=== PATIENT | female | born 1975 | race Two or more races ===

== ENCOUNTER 2021-12-26 09:24 | Inpatient (IN) | payer MEDICAID, OTHER ==
[~2021-12-26] VITALS: Ht 152.4 cm; Wt 84.3 kg
[2021-12-26] MEDS ORDERED: KETOROLAC TROMETH 60MG/2ML VIAL IM ONE (10:30)
[2021-12-26 10:36] LABS: Basophils # (auto) 0 10 ^3/uL (0-0.2); Basophils % (auto) 0.1 % (0.0-2.0); Eosinophils # (auto) 0 10 ^3/uL (0-0.8); Hematocrit 37.9 % (36.0-46.0); Hemoglobin 12.1 g/dL (12.2-16.2); Lymphocytes # (auto) 2.1 10 ^3/uL (0.4-5.4); Lymphocytes % (auto) 22.4 % (10.0-50.0); Mean Corpuscular Hemoglobin 23.9 pg (28.0-32.0); Mean Corpuscular Hgb Conc. 31.8 g/dL (32.0-36.0); Mean Corpuscular Volume 75.1 fL (80.0-100.0); Monocytes # (auto) 0.7 10 ^3/uL (0-1.3); Monocytes % (auto) 7.7 % (0.0-12.0); Neutrophils # (auto) 6.4 10 ^3/uL (1.6-8.6); Neutrophils % (auto) 69.8 % (37.0-80.0); Red Blood Cells 5.04 10^6/uL (4.0-5.20); Red Cell Distribution Width 17.7 % (11.8-14.3); White Blood Cell 9.2 10^3/uL (4.4-10.8)
[2021-12-26 10:53] LABS: Albumin 3.6 g/dL (3.4-5.0); Potassium 3.7 mmol/L (3.5-5.1)
[2021-12-26 10:56] LABS: BUN/Creatinine Ratio 15.4; Bilirubin, Total 0.6 mg/dL (0.2-1.0); Total Protein 8.1 g/dL (6.4-8.2)
[2021-12-26 11:20] LABS: Urine Bacteria NONE SEEN /hpf (None Seen); Urine Blood 1+ /uL (Negative); Urine Mucus FEW (None Seen); Urine Specific Gravity 1.016 (1.001-1.035); Urine WBC 598 /hpf (0 - 5); Urine WBC Clumps PRESENT /hpf (None Seen)
[2021-12-26] MEDS ORDERED: cefTRIAXone 1GM/50ML D5W 50 ML IV ONE (13:00)
[2021-12-26] MEDS ORDERED: MORPHINE SULFATE INJ 2 MG/ml SYRG IV ONE (13:00)
[2021-12-26] MEDS ORDERED: SODIUM CHLORIDE 0.9% 1,000 ML IV ONE (13:00)
[2021-12-26] MEDS ORDERED: ONDANSETRON HCL 4 MG/2 ML VIAL IV ONE (13:00)
[2021-12-26] MEDS ORDERED: ONDANSETRON HCL 4 MG/2 ML VIAL IV PRN (16:45)
[2021-12-26] MEDS ORDERED: MORPHINE SULFATE INJ 2 MG/ml SYRG IV PRN (16:45)
[2021-12-26 17:27] LABS: Magnesium 2.4 mg/dL (1.6-2.6)
[2021-12-26] MEDS: PANTOPRAZOLE 40 MG/10 ML VIAL INJ IV SCH (17:36)
[2021-12-26] MEDS: SODIUM CHLORIDE 0.9% 1,000 ML IV SCH (17:36)
[2021-12-26] MEDS ORDERED: VARD20TA PO (20:47)
[2021-12-26] MEDS ORDERED: OMEP20TA PO (20:47)
[2021-12-26 22:00] VITALS: BP 107/61
[2021-12-27] MEDS: SODIUM CHLORIDE 0.9% 1,000 ML IV SCH ×3 (01:05→18:55)
[2021-12-27 05:00] VITALS: BP 104/61
[2021-12-27] MEDS ORDERED: HYDROcodone-ACET 5/325MG TAB PO PRN (05:45)
[2021-12-27 05:54] LABS: Basophils # (auto) 0 10 ^3/uL (0-0.2); Eosinophils # (auto) 0 10 ^3/uL (0-0.8); Lymphocytes # (auto) 2.2 10 ^3/uL (0.4-5.4); Mean Corpuscular Volume 75.9 fL (80.0-100.0)
[2021-12-27 06:00] LABS: Basophils % (auto) 0.1 % (0.0-2.0); Hematocrit 31.4 % (36.0-46.0); Hemoglobin 10.2 g/dL (12.2-16.2); Mean Corpuscular Hemoglobin 24.7 pg (28.0-32.0); Mean Corpuscular Hgb Conc. 32.5 g/dL (32.0-36.0); Monocytes % (auto) 10.6 % (0.0-12.0); Neutrophils # (auto) 6.3 10 ^3/uL (1.6-8.6); Neutrophils % (auto) 66.3 % (37.0-80.0); Red Blood Cells 4.14 10^6/uL (4.0-5.20); Red Cell Distribution Width 17.4 % (11.8-14.3); White Blood Cell 9.4 10^3/uL (4.4-10.8)
[2021-12-27 06:16] LABS: Calcium 7.8 mg/dL (8.5-10.1); Potassium 3.4 mmol/L (3.5-5.1)
[2021-12-27 06:19] LABS: Albumin 2.9 g/dL (3.4-5.0); BUN/Creatinine Ratio 18.2
[2021-12-27 06:22] LABS: Bilirubin, Total 0.7 mg/dL (0.2-1.0); Total Protein 6.4 g/dL (6.4-8.2)
[2021-12-27 08:58] VITALS: BP 111/68
[2021-12-27] MEDS: PANTOPRAZOLE 40 MG/10 ML VIAL INJ IV SCH (09:04)
[2021-12-27] MEDS: cefTRIAXone 1GM/50ML D5W 50 ML IV SCH (09:04)
[2021-12-27 10:00] VITALS: BP 129/73
[2021-12-27 16:57] VITALS: BP 105/61
[2021-12-27 22:00] VITALS: BP 94/47
[2021-12-28] MEDS: SODIUM CHLORIDE 0.9% 1,000 ML IV SCH ×2 (01:54→11:29)
[2021-12-28 05:30] VITALS: BP 108/56
[2021-12-28 08:00] VITALS: BP 116/73
[2021-12-28] MEDS: cefTRIAXone 1GM/50ML D5W 50 ML IV SCH (08:39)
[2021-12-28 09:00] VITALS: BP 104/54
[2021-12-28] MEDS: PANTOPRAZOLE 40 MG/10 ML VIAL INJ IV SCH (10:01)
[2021-12-28 13:00] VITALS: BP 112/56
[2021-12-28] MEDS ORDERED: NAPR375T27 PO (16:18)
[2021-12-28 17:00] VITALS: BP 106/62
[2021-12-28 17:23] VITALS: BP 110/70
== END 2021-12-28 18:20 | disposition home or self-care (01) | DRG 463 ==
LOC: ER 09:24 → OVERFLOW 16:38 → WEST WING 20:25
PROVIDERS: ADMIT Registered Nurse; ATTEND Registered Nurse
DX: N13.6 Pyonephrosis (principal); D50.9 Iron deficiency anemia, unspecified; E03.9 Hypothyroidism, unspecified; E66.01 Morbid (severe) obesity due to excess calories; Z20.822 Contact with and (suspected) exposure to COVID-19; K29.70 Gastritis, unspecified, without bleeding; Z87.440 Personal history of urinary (tract) infections; Z87.442 Personal history of urinary calculi; Z90.12 Acquired absence of left breast and nipple; Z90.49 Acquired absence of other specified parts of digestive tract; Z88.1 Allergy status to other antibiotic agents; Z88.2 Allergy status to sulfonamides; Z88.8 Allergy status to other drugs, medicaments and biological substances; Z68.36 Body mass index [BMI] 36.0-36.9, adult
CPT/HCPCS: 36415; 74176; 76775; 80053; 80061; 81001; 83036; 83690; 83735; 84443; 85025; 87086; 96365; 96372; C9113; G0378; J0696; J1885; J2405

== ENCOUNTER 2025-01-04 15:00 | Emergency (ER) | payer MEDICAID ==
[~2025-01-04] VITALS: Ht 154.9 cm; Wt 83.5 kg
[~2025-01-04 15:00] MED LIST: NAPR-957 PO; OMEP20TA PO; VARD20TA PO
[2025-01-04 15:51] LABS: Urine Protein, UAD Negative (Negative)
[2025-01-04 15:52] VITALS: BP 141/92; PULSE 101; RESP 18; TEMP 98.1; O2SAT 97
--- NOTE | 2025-01-04 15:59 | ED.PDOC ---
General HPI Comments A 49-YEAR-OLD FEMALE WITH PMHx UTI PRESENTS WITH A CHIEF COMPLAINT OF UTI SYMPTOMS WITH ASSOCIATED NAUSEA. PATIENT MENTIONS THAT SHE IS FEELING URINARY FREQUENCY, URINARY URGENCY, DYSURIA, AND FLANK PAIN. PATIENT IS NAUSEATED BUT DENIES ANY ACTIVE VOMITING AT THIS TIME. PATIENT IS ALLERGIC TO MOST UTI MEDICATIONS AND CAN ONLY TAKE ROCEPHIN IM. PT DENIES ANY OTHER COMPLAINTS. NO OTHER SYMPTOMS REPORTED AT THIS TIME OF CARE. Chief Complaint: Urinary Time Seen by MD: 15:50 Primary Care Provider: NONE Reviewed notes: Nurses Notes, Medications, Allergies Allergies: Coded Allergies: Ciprofloxacin (Verified Allergy, Unknown, 12/26/21) Levofloxacin (Verified Allergy, Unknown, 12/26/21) Nitrofurantoin (Verified Allergy, Unknown, 12/26/21) Uncoded Allergies: SULFA (Allergy, Unknown, 12/26/21) Home Meds Active Scripts Naproxen (Naproxen) 375 Mg Tab, 1 TAB PO BID PRN for 10 Days, #20 TAB 5 Refills Prov:MINLOREN DO 12/28/21 Reported Medications Vardenafil Hydrochloride (Levitra) 20 Mg Tab, 1 TAB PO DAILYP, #6 TAB 11 Refills 12/26/21 Omeprazole (Gnp Omeprazole) 20 Mg Tab, 1 TAB PO DAILY, #90 TAB 1 Refill 12/26/21 Information Source: Patient Mode of Arrival: Ambulatory Severity: Moderate Inability to void: None Timing: Days Duration: Since onset Has not urinated for: Minutes Prehospital treatment: None Onset: Spontaneous Symptoms: Dysuria, Frequency, Urgency History of: UTI Location: Suprapubic associated signs and symptoms: Nausea, Dysuria, Frequency, Urgency Past Medical History PAST MEDICAL HISTORY: Kidney Stones, Thyroid, UTI'S Surgical History: Cholecystectomy PAINT FORMULATOR History: No Pertinent PAINT FORMULATOR History Family History Family History: Reviewed,noncontributory to illness Social History Smoker: Non-Smoker Alcohol: Denies ETOH Use Drugs: Denies Drug Use Lives In: Home Constitutional: denies: chills, diaphoresis, fatigue, fever, malaise, sweats, weakness, others EENTM: denies: blurred vision, double vision, ear bleeding, ear discharge, ear drainage, ear pain, ear ringing, eye pain, eye redness, hearing loss, mouth pain, mouth swelling, nasal discharge, nose bleeding, nose congestion, nose pain, photophobia, tearing, throat pain, throat swelling, voice changes, others Respiratory: denies: cough, hemoptysis, orthopnea, SOB at rest, shortness of breath, SOB with excertion, stridor, wheezing, others Cardiovascular: denies: chest pain, dizzy spells, diaphoresis, Dyspnea on exertion, edema, irregular heart beat, left arm pain, lightheadedness, palpitations, PND, syncope, others Gastrointestinal: reports: nausea; denies: abdomen distended, abdominal pain, blood streaked bowels, constipated, diarrhea, dysphagia, difficulty swallowing, hematemesis, melena, poor appetite, poor fluid intake, rectal bleeding, rectal pain, vomiting, others Genitourinary: reports: dysuria, frequency, pain, urgency; denies: abnormal vagina bleeding, burning, dyspareunia, flank pain, hematuria, incontinence, , vagina discharge, others Neurological: denies: dizziness, fainting, headache, left sided numbness, left sided weakness, numbness, paresthesia, pre-existing deficit, right sided numbness, right sided weakness, seizure, speech problems, tingling, tremors, weakness, others Musculoskeletal: denies: back pain, gout, joint pain, joint swelling, muscle pain, muscle stiffness, neck pain, others Integumetry: denies: bruises, change in color, change in hair/nails, dryness, laceration, lesions, lumps, rash, wounds, others Allergic/Immunocompromised: denies: Difficulty Healing, Frequent Infections, Hives, Itching, others Hematologic/Lymphatic: denies: anemia, blood clots, easy bleeding, easy bruising, swollen glands, others Endocrine: denies: excessive hunger, excessive sweating, excessive thirst, excessive urination, flushing, intolerance to cold, intolerance to heat, unexplained weight gain, unexplained weight loss, others Psychiatric: denies: anxiety, bipolar disorder, depression, hopeless, panic disorder, schizophrenia, sleepless, suicidal, others All Other Systems: Reviewed and Negative Physical Exam General Appearance: No Apparent Distress, Obese HEENT: Normal ENT Inspection, PERRL/EOMI, Pharynx Normal, TMs Normal Neck: Full Range of Motion, Non-Tender, Normal, Normal Inspection Respiratory: Chest Non-Tender, Lungs Clear, No Accessory Muscle Use, No Respiratory Distress, Normal Breath Sounds Cardiovascular: No Edema, No JVD, No Murmur, No Gallop, Normal Peripheral Pulses, Regular Rate/Rhythm Breast Exam: Deferred Gastrointestinal: No Organomegaly, No Pulsatile Mass, Normal Bowel Sounds, S oft, Suprapubic (PRESSURE. ), Tenderness Genitalia: Deferred Pelvic: Normal External Exam, Tender Uterus Rectal: Deferred Extremities: No calf tenderness, Normal capillary refill, Normal inspection, Normal range of motion, Non-tender, No pedal edema Musculoskeletal : Apperance: Normal Neurologic: Alert, assessment specialist II-XII nml as Tested, No Motor Deficits, Normal Affect, Normal Mood, No Sensory Deficits Cerebellar Function: Normal Reflexes: Normal Skin: Dry, Normal Color, Warm Peripheral Pulses: 2+ carotid (R), 2+ carotid (L) Lymphatic: No Adenopathy Was a procedure done? Was a procedure done?: No Differential Diagnosis Kidney stone (Female): Urolithiasis Urinary Problem (Female): Pyelonephritis, Urolithiasis, UTI X-Ray, Labs, Meds, VS Vital Signs Date Time Temp Pulse Resp B/P (MAP) Pulse Ox O2 Delivery O2 Flow Rate FiO2 01/04/25 15:52 101 18 97 Room Air 01/04/25 15:52 98.1 101 18 141/92 (108) 97 98.1 01/04/25 15:01 98.5 97 18 138/75 96 98.5 Lab Test 01/04/25 15:41 Range/Units Urine Color Light-yellow Yellow Urine Clarity Clear Clear Urine pH 6.0 5.0-9.0 Urine Specific [place] 1.012 1.001-1.035 Urine Protein Negative Negative Urine Ketones Negative Negative Urine Blood 2+ H Negative /uL Urine Nitrite Negative Negative Urine Bilirubin Negative Negative Urine Urobilinogen Normal Negative mg/dL Urine Leukocyte Esterase 3+ Negative /uL Urine RBC 27 0 - 4 /hpf Urine Microscopic WBC 85 H 0-5 /HPF Urine Squamous Epithelial Cells Few <5 /hpf Urine Bacteria Few H None Seen /hpf Urine Glucose Normal Normal mg/dL Current Medications Medications (Trade) Dose Ordered Sig/Nelda Route Start Time Stop Time Status Last Admin Ceftriaxone Sodium (Rocephin) 1,000 mg ONCE ONCE IM 01/04/25 16:00 01/04/25 16:01 DC 01/04/25 16:05 Ketorolac Tromethamine (Toradol Injection) 60 mg ONCE ONCE IM 01/04/25 16:00 01/04/25 16:01 DC 01/04/25 16:06 X-Ray, Labs, Meds, VS Comment EXTERNAL MEDICAL RECORDS REVIEWED: [NONE] INDEPENDENT HISTORIANS: [NONE] SOCIAL DETERMINANTS OF HEALTH: [NONE] LABS ORDERED: NONE REVIEWED AND INTERPRETED RESULTS: NONE IMAGING ORDERED: NONE TREATMENTS ORDERED: TORADOL 60MG IM, ROCEPHIN 1G IM PROCEDURES PERFORMED: NONE CRITICAL CARE TIME: NONE I HAVE DISCUSSED THE PATIENT WITH THE ATTENDING PHYSICIAN DR. BOBBY CAMACHO AND SHE AGREES WITH THE PATIENT'S PLAN OF CARE AND DISPOSITION. BASED ON HISTORY OF PRESENT ILLNESS, AND PHYSICAL EXAM, PATIENT WILL BE DISCHARGED HOME. SHARED DECISION MAKING: DISCUSSED WITH PATIENT THAT THEIR WORKUP WAS NORMAL. PATIENT INSTRUCTED TO FOLLOW UP WITH PRIMARY CARE PROVIDER IN 1-2 DAYS FOR RE- EVALUATION OF SYMPTOMS. PATIENT VERBALIZES UNDERSTANDING TO RETURN TO ED FOR NEW OR WORSENING SYMPTOMS OR IF FOLLOW UP WITH PCP CANNOT BE OBTAINED. PATIENT FEELS COMFORTABLE GOING HOME AT THIS TIME. ALL QUESTIONS ADDRESSED AT TIME OF DISCHARGE. Time of 1ST Reevaluation: 16:20 Reevaluation 1ST: Improved Patient Education/Counseling: Diagnosis, Treatment, Need For Follow Up Family Education/Counseling: Diagnosis, Treatment, Need For Follow Up Medical Screening: No EMC Exist At This Time SEPSIS Sepsis Screen Date sepsis recognized/suspect: Jan 04, 2025 Time Sepsis recognized/suspect: 1503 Recent Procedure: No On Antibiotic Therapy: No Respiratory Rate >20: No Heart Rate >90: Yes Temp<36 C (96.8 F) or >38.3 C: No SBP <90 or MAP <65 mmHG: No New Acute Mental Status Change: No Is the patient on CPAP, BIPAP,: No Vital Signs Date Time Temp Pulse Resp B/P (MAP) Pulse Ox O2 Delivery O2 Flow Rate FiO2 01/04/25 15:52 101 18 97 Room Air 01/04/25 15:52 98.1 101 18 141/92 (108) 97 98.1 01/04/25 15:01 98.5 97 18 138/75 96 98.5 Medications Medications Dose Ordered Sig/Nelda Route Start Time Stop Time Status Last Admin Dose Admin Ceftriaxone Sodium 1,000 mg ONCE ONCE IM 01/04/25 16:00 01/04/25 16:01 DC 01/04/25 16:05 Ketorolac Tromethamine 60 mg ONCE ONCE IM 01/04/25 16:00 01/04/25 16:01 DC 01/04/25 16:06 Departure 1 Departure Time of Disposition: 16:30 Impression: Primary Impression: UTI (urinary tract infection) Qualified Codes: N39.0 - Urinary tract infection, site not specified Disposition: HOME / SELF CARE / HOMELESS Condition: Stable Additional Instructions: FOLLOW-UP WITH PCP IN 1 TO 2 DAYS. TAKE MEDICATIONS PRESCRIBED. RETURN TO ED FOR ANY NEW OR WORSENING SYMPTOMS. Discharged With: Self Critical Care Note Critical Care Time?: No Stability Stability form required: No Heart Score Heart Score: Heart Score Response (Comments) Value History N/A 0 EKG N/A 0 Age N/A 0 Risk Factors N/A 0 Troponin N/A 0 Total 0 I personally scribed for VERONICA DAVIDSON ([email or web address]) on 01/04/25 at 15:59. Electronically submitted by Adrien Martinez ([email or web address]). VERONICA DAVIDSON Jan 04, 2025 15:59
[2025-01-04] MEDS: LIDOCAINE 1% HCL (LOCAL ANESTH.) INJ 20ML MDV ONE (16:01)
[2025-01-04] MEDS: cefTRIAXone SOD 1,000 MG VL IM ONE (16:05)
[2025-01-04] MEDS: KETOROLAC TROMETH 60MG/2ML VIAL IM ONE (16:06)
== END 2025-01-04 16:20 | disposition home or self-care (01) ==
LOC: ER 15:00
DX: N39.0 Urinary tract infection, site not specified (principal); E03.9 Hypothyroidism, unspecified; Z79.899 Other long term (current) drug therapy; Z87.440 Personal history of urinary (tract) infections; Z90.49 Acquired absence of other specified parts of digestive tract; Z88.1 Allergy status to other antibiotic agents; Z88.2 Allergy status to sulfonamides; Z88.8 Allergy status to other drugs, medicaments and biological substances
CPT/HCPCS: 81001; 96372; 99284; J0696; J1885; J2003

== ENCOUNTER 2025-01-05 07:12 | Inpatient (IN) | payer MEDICAID ==
[~2025-01-05] VITALS: Ht 152.4 cm; Wt 83.3 kg
[2025-01-05] MEDS ORDERED: cefTRIAXone SOD 1,000 MG VL IM ONE (08:00)
[2025-01-05] MEDS: ONDANSETRON ODT 4 MG TAB PO ONE (08:02)
--- NOTE | 2025-01-05 08:02 | ED.PDOC ---
History of Present Illness HPI Comments A 49 YEAR OLD FEMALE PRESENTS TO THE ED WITH COMPLAINT OF NAUSEA, VOMITING, AND CHILLS FOLLOWED BY A ONGOING UTI SX IN WHICH SHE WAS SEE FOR YESTERDAY AT THIS HOSPITAL. PATIENT REPORTS ALSO EXPERIENCING BACK PAIN RADIATING TO HER RIGHT SIDED FLANK AND HAS A HX OF KIDNEY STONES. PATIENT TOOK ZOFRAN AT 6:30AM TODAY. PATIENT HAS A KNOWN HISTORY OF MULTIPLE MEDICATION ALLERGIES AND IS REQUESTING ROCEPHIN 1G IM FOR SX RELIEF. PATIENT DENIES FEVER, SHORTNESS OF BREATH, CHEST PAIN, ABDOMINAL PAIN,HEADACHE, OR OTHER COMPLAINTS. NO OTHER SYMPTOMS OR MODIFYING FACTORS AT THIS TIME. PATIENT IS ALERT, ORIENTED X 4, AND HAS STEADY GAIT. Chief Complaint: Nausea/Vomiting Time Seen by MD: 07:50 Primary Care Provider: NONE Reviewed Notes: Nurses Notes, Medications, Allergies Allergies: Coded Allergies: Ciprofloxacin (Verified Allergy, Unknown, 12/26/21) Levofloxacin (Verified Allergy, Unknown, 12/26/21) Nitrofurantoin (Verified Allergy, Unknown, 12/26/21) Uncoded Allergies: SULFA (Allergy, Unknown, 12/26/21) Home Meds Active Scripts Naproxen (Naproxen) 375 Mg Tab, 1 TAB PO BID PRN for 10 Days, #20 TAB 5 Refills Prov:LOREN MIN DO 12/28/21 Reported Medications Vardenafil Hydrochloride (Levitra) 20 Mg Tab, 1 TAB PO DAILYP, #6 TAB 11 Refills 12/26/21 Omeprazole (Gnp Omeprazole) 20 Mg Tab, 1 TAB PO DAILY, #90 TAB 1 Refill 12/26/21 Information Source: Patient Mode of Arrival: Ambulatory Severity: Moderate Timing: Days, Came on: Gradually Duration: Since onset, Days Medication Refill: For: Other (UTI SYMPTOMS WITH NAUSEA AND VOMITING ) Past Medical History PAST MEDICAL HISTORY: Kidney Stones, Thyroid, UTI'S Surgical History: Cholecystectomy [employer] [place] History: No Pertinent [employer] [place] History Family History Family History: Reviewed,noncontributory to illness Social History Smoker: Non-Smoker Alcohol: Denies ETOH Use Drugs: Denies Drug Use Lives In: Home Constitutional: reports: chills, others (ANXIOUS ); denies: diaphoresis, fatigue, fever, malaise, sweats, weakness EENTM: denies: blurred vision, double vision, ear bleeding, ear discharge, ear drainage, ear pain, ear ringing, eye pain, eye redness, hearing loss, mouth pain, mouth swelling, nasal discharge, nose bleeding, nose congestion, nose p ain, photophobia, tearing, throat pain, throat swelling, voice changes, others Respiratory: denies: cough, hemoptysis, orthopnea, SOB at rest, shortness of breath, SOB with excertion, stridor, wheezing, others Cardiovascular: denies: chest pain, dizzy spells, diaphoresis, Dyspnea on exertion, edema, irregular heart beat, left arm pain, lightheadedness, palpitations, PND, syncope, others Gastrointestinal: reports: abdominal pain, nausea, vomiting; denies: abdomen distended, blood streaked bowels, constipated, diarrhea, dysphagia, difficulty swallowing, hematemesis, melena, poor appetite, poor fluid intake, rectal bleeding, rectal pain, others Genitourinary: reports: burning, flank pain, frequency, hematuria, urgency; denies: abnormal vagina bleeding, dyspareunia, dysuria, incontinence, pain, , vagina discharge, others Neurological: denies: dizziness, fainting, headache, left sided numbness, left sided weakness, numbness, paresthesia, pre-existing deficit, right sided numbness, right sided weakness, seizure, speech problems, tingling, tremors, weakness, others Musculoskeletal: reports: back pain; denies: gout, joint pain, joint swelling, muscle pain, muscle stiffness, neck pain, others Integumetry: denies: bruises, change in color, change in hair/nails, dryness, laceration, lesions, lumps, rash, wounds, others Allergic/Immunocompromised: denies: Difficulty Healing, Frequent Infections, Hives, Itching, others Hematologic/Lymphatic: denies: anemia, blood clots, easy bleeding, easy bruising, swollen glands, others Endocrine: denies: excessive hunger, excessive sweating, excessive thirst, excessive urination, flushing, intolerance to cold, intolerance to heat, unexplained weight gain, unexplained weight loss, others Psychiatric: reports: anxiety; denies: bipolar disorder, depression, hopeless, panic disorder, schizophrenia, sleepless, suicidal, others All Other Systems: Reviewed and Negative Physical Exam General Appearance: Mild Distress, Normal, Other (ANXIOUS ) HEENT: Normal ENT Inspection, PERRL/EOMI, Pharynx Normal, TMs Normal Neck: Full Range of Motion, Non-Tender, Normal, Normal Inspection Respiratory: Chest Non-Tender, Lungs Clear, No Accessory Muscle Use, No Respiratory Distress, Normal Breath Sounds Cardiovascular: No Edema, No JVD, No Murmur, No Gallop, Normal Peripheral Pulses, Regular Rate/Rhythm Breast Exam: Deferred Gastrointestinal: LLQ, No Organomegaly, No Pulsatile Mass, Normal Bowel Sounds, RLQ, Soft, Suprapubic, Tenderness (LOWER ABD, NO GUARDING AND REBOUND TENDERNESS. +CVA TENDERNESS ON RIGHT FLANK. ) Genitalia: Deferred Pelvic: Normal External Exam Rectal: Deferred Extremities: No calf tenderness, Normal capillary refill, Normal inspection, Normal range of motion, Non-tender, No pedal edema Musculoskeletal : Location: Bilateral Extremity Location: Back Apperance: Tenderness (LOWER BACK, NO BONY TENDERNESS, SWELLING AND DEFORMITY, +CVA TENDERNESS. ) Neurologic: Alert, human resources services specialist II-XII nml as Tested, No Motor Deficits, Normal Affect, Normal Mood, No Sensory Deficits Cerebellar Function: Normal Reflexes: Normal Skin: Dry, Normal Color, Warm Peripheral Pulses: 2+ carotid (R), 2+ carotid (L), 2+ dorsalis pedis (R), 2+ dorsalis pedis (L) Lymphatic: No Adenopathy Was a procedure done? Was a procedure done?: No Differential Dx Considerations may include: KIDNEY STONES, UTI, URETHRITIS, OVERACTIVE BLADDER, BLADDER STONES, URETHRAL STRICTURE X-Ray, Labs, Meds, VS Vital Signs Date Time Temp Pulse Resp B/P (MAP) Pulse Ox O2 Delivery O2 Flow Rate FiO2 01/05/25 15:29 97.8 71 16 109/64 (79) 97 97.8 01/05/25 11:53 98.5 112 18 142/75 (97) 97 98.5 01/05/25 11:53 112 18 97 Room Air 01/05/25 09:52 98.6 109 16 109/70 (83) 95 98.6 01/05/25 09:52 109 16 95 Room Air 01/05/25 07:18 99.6 130 16 146/87 97 99.6 Lab Test 01/05/25 08:20 01/05/25 07:52 Range/Units White Blood Count 18.9 H 4.4-10.8 10^3/uL Red Blood Count 5.02 4.0-5.20 10^6/uL Hemoglobin 13.0 12.2-16.2 g/dL Hematocrit 39.3 36.0-46.0 % Mean Corpuscular Volume 78.4 L 80.0-100.0 fL Mean Corpuscular Hemoglobin 26.0 L 28.0-32.0 pg Mean Corpuscular Hemoglobin Concent 33.2 32.0-36.0 g/dL Red Cell Distribution Width 16.8 H 11.8-14.3 % Platelet Count 340 140-450 10^3/uL Mean Platelet Volume 8.7 6.9-10.8 fL Neutrophils (%) (Auto) 90.0 H 37.0-80.0 % Lymphocytes (%) (Auto) 3.7 L 10.0-50.0 % Monocytes (%) (Auto) 6.1 0.0-12.0 % Eosinophils (%) (Auto) 0.0 0.0-7.0 % Basophils (%) (Auto) 0.2 0.0-2.0 % Neutrophils # (Auto) 17.0 H 1.6-8.6 10 ^3/uL Lymphocytes # (Auto) 0.7 0.4-5.4 10 ^3/uL Monocytes # (Auto) 1.1 0-1.3 10 ^3/uL Eosinophils # (Auto) 0 0-0.8 10 ^3/uL Basophils # (Auto) 0 0-0.2 10 ^3/uL Nucleated Red Blood Cells 0.0 % Sodium Level 135 L 136-145 mmol/L Potassium Level 3.7 3.5-5.1 mmol/L Chloride Level 102 98-107 mmol/L Carbon Dioxide Level 21 20-31 mmol/L Anion Gap 12 5-15 Blood Urea Nitrogen 16 9-23 mg/dL Creatinine 0.94 0.550-1.02 mg/dL Glomerular Filtration Rate Calc 73 >90 mL/min BUN/Creatinine Ratio 17.0 10.0-20.0 Serum Glucose 168 H 74-106 mg/dL Calcium Level 9.2 8.7-10.4 mg/dL Urine Color Light-orange Yellow Urine Clarity Turbid H Clear Urine pH 5.5 5.0-9.0 Urine Specific [place] 1.027 1.001-1.035 Urine Protein 1+ H Negative Urine Ketones 1+ H Negative Urine Blood 2+ H Negative /uL Urine Nitrite Negative Negative Urine Bilirubin Negative Negative Urine Urobilinogen Normal Negative mg/dL Urine Leukocyte Esterase 3+ Negative /uL Urine RBC 88 0 - 4 /hpf Urine WBC Clumps Present None Seen /hpf Urine Microscopic WBC 486 H 0-5 /HPF Urine Squamous Epithelial Cells Few <5 /hpf Urine Bacteria Few H None Seen /hpf Urine Mucus Few None Seen Urine Glucose Trace Normal mg/dL Current Medications Medications (Trade) Dose Ordered Sig/Nelda Route Start Time Stop Time Status Last Admin Ondansetron HCl (Zofran Po) 4 mg ONCE ONCE PO 01/05/25 08:00 01/05/25 08:01 DC 01/05/25 08:02 Sodium Chloride 1,000 ml @ 1,000 mls/hr Q1H ONCE IV 01/05/25 09:30 01/05/25 10:29 DC 01/05/25 11:55 Ceftriaxone Sodium 50 ml @ 100 mls/hr ONCE ONCE IV 01/05/25 09:30 01/05/25 09:59 DC 01/05/25 11:54 Ketorolac Tromethamine (Toradol Injection) 30 mg ONCE ONCE IV 01/05/25 09:30 01/05/25 09:31 DC 01/05/25 11:54 Pantoprazole Sodium (Protonix) 40 mg ONCE ONCE IV 01/05/25 12:15 01/05/25 12:16 DC 01/05/25 12:13 Ondansetron HCl (Zofran) 4 mg ONCE ONCE IV 01/05/25 12:15 01/05/25 12:16 DC 01/05/25 12:13 PATIENT: SHIRLEY RICHARDSACCT: [id number]: [id number] : 1975 LOC: ER ROOM / BED: / AGE / SEX: 49 / F ADM STATUS: REG ER SERVICE [id number] ORDERING PHYSICIAN: VERONICA DAVIDSON PROCEDURE(s): ABPL - CT AB PEL WO CON-NO ORAL OR IV REASON: RIGHT SIDE LOWER ABD PAIN TO RIGHT LOWER BACK, HX OF KIDNEY ORDER NUMBER(s): [id number], ACCESSION NUMBER(s): [id number] Exam: CT CT AB PEL WO CON-NO ORAL OR IV History: RIGHT SIDE LOWER ABD PAIN TO RIGHT LOWER BACK, HX OF KIDNEY Comparison Study: Report from a prior CT scan of the abdomen and pelvis dated 03/18/2024. Technique: Multidetector spiral CT of the abdomen and pelvis was performed from lung bases to pubic symphysis. Imaging was performed without intravenous contrast. Coronal and sagittal multiplanar reformats were obtained from the axial data set by the technologist. Radiation Dose : 1. Abdomen/Pelvis: CTDIvol 19.92 mGy, DLP 1039.9 mGy*cm. Findings: Evaluation of vasculature and solid organs is limited due to lack of intravenous contrast use. Lung Bases: Lung bases are clear. Visualized portions of the heart and pericardium are unremarkable. Liver: The liver is enlarged. Limited evaluation for lesions without intravenous contrast. Hypoattenuating liver parenchyma consistent with hepatic steatosis. Gallbladder and Biliary Tree: The gallbladder is surgically absent. No intrahepatic or extrahepatic biliary ductal dilatation. Spleen: The spleen is enlarged measuring 13.5 cm in length. Pancreas: The pancreas is grossly unremarkable. Adrenal Glands: Unremarkable Kidneys: Multiple Nonobstructive right intrarenal calculi measuring up to 1.3 cm in the lower pole of the right kidney. Nonobstructive left intrarenal calculi measuring up to 3 mm. GI tract: The stomach is grossly normal in appearance. No evidence of small bowel wall thickening or abnormal dilatation to suggest bowel obstruction. The colon is unremarkable. The appendix is visualized and is normal. Peritoneum/mesentery/retroperitoneum. No evidence of free intraperitoneal air. No ascites. No evidence of suspicious lymphadenopathy. Abdominal Wall: Unremarkable. Vasculature: The visualized abdominal aorta is normal in size and caliber. Evaluation of abdominal and pelvic vessels is limited due to lack of intravenous contrast. Urinary Bladder: Grossly unremarkable for degree of distention. Pelvic Organs: Unremarkable Musculoskeletal: No aggressive focal bony lesions, acute fractures or dislocation. IMPRESSION: 1. No acute abdominal or pelvic findings. 2. Nonobstructive Bilateral intrarenal calculi, right greater than left. 3. Hepatomegaly and hepatic steatosis. 4. Splenomegaly. ATED BY: DINA MISTRY MD DICTATED DATE/TIME: 01/05/25 0847 SIGNED BY: DINA MISTRY MD SIGNED DATE/TIME: 01/05/25 2996 CC: X-Ray, Labs, Meds, VS Comment EXTERNAL MEDICAL RECORDS REVIEWED: [NONE] INDEPENDENT HISTORIANS: [NONE] SOCIAL DETERMINANTS OF HEALTH: [NONE] LABS ORDERED: BMP, CBC, URINE ANALYSIS, URINE BACTERIAL CULTURE REVIEWED AND INTERPRETED RESULTS: UTI WITH ELEVATED WBC OF 18.9. GLUCOSE MEASURED 168 IMAGING ORDERED: CTAP W/O CON REVIEWED AND INTERPRETED RESULTS: IMPRESSION: 1. No acute abdominal or pelvic findings. 2. Nonobstructive Bilateral intrarenal calculi, right greater than left. 3. Hepatomegaly and hepatic steatosis. 4. Splenomegaly. TREATMENTS ORDERED: ZOFRAN 4M PO, ROCEPHIN 1GM IVPB, 0.9 NS 1L, TORADOL 30MG IV. FLOMAX 0.4MG 2 CAP ORDERED BUT DISCONTINUED PT REPORTS PREVIOUS ALLERGIC REACTION. (WAS NOT GIVE) PROCEDURES PERFORMED: NONE CRITICAL CARE TIME: NONE I HAVE DISCUSSED THE PATIENT WITH THE ATTENDING PHYSICIAN DR. PRICE AND HE AGREES WITH THE PATIENT'S PLAN OF CARE AND DISPOSITION. MDM A 49 year old female presented to the ED c/o . Upon my physical examination, My differential diagnosis includes UTI, acute pyelonephritis, Nonobstructive Bilateral intrarenal calculi, right greater than left. Labs were ordered for the patient which showed elevated WBC I have determined the patient will be admitted based off of my clincal exam findings and tests given ongoing urinary symptoms and flank pain for further diagnostic testing. Time of 1ST Reevaluation: 09:00 Reevaluation 1ST: Unchanged Patient Education/Counseling: Diagnosis, Treatment Family Education/Counseling: Diagnosis, Treatment SEPSIS Sepsis Screen Date sepsis recognized/suspect: Jan 05, 2025 Time Sepsis recognized/suspect: 721 Recent Procedure: No On Antibiotic Therapy: Yes Respiratory Rate >20: No Heart Rate >90: Yes Temp<36 C (96.8 F) or >38.3 C: No SBP <90 or MAP <65 mmHG: No New Acute Mental Status Change: No Is the patient on CPAP, BIPAP,: No Physician Orders Urine Bacterial Culture (01/05/25 07:54) Ct Ab Pel Wo Con-No Oral Or Iv (01/05/25 07:54) Heplock Iv (01/05/25 ) Vital Signs Date Time Temp Pulse Resp B/P (MAP) Pulse Ox O2 Delivery O2 Flow Rate FiO2 01/05/25 15:29 97.8 71 16 109/64 (79) 97 97.8 01/05/25 11:53 98.5 112 18 142/75 (97) 97 98.5 01/05/25 11:53 112 18 97 Room Air 01/05/25 09:52 98.6 109 16 109/70 (83) 95 98.6 01/05/25 09:52 109 16 95 Room Air 01/05/25 07:18 99.6 130 16 146/87 97 99.6 Laboratory Tests Test 01/05/25 08:20 White Blood Count 18.9 10^3/uL (4.4-10.8) H Medications Medications Dose Ordered Sig/Nelda Route Start Time Stop Time Status Last Admin Dose Admin Ceftriaxone Sodium 50 ml @ 100 mls/hr ONCE ONCE IV 01/05/25 09:30 01/05/25 09:59 DC 01/05/25 11:54 Ketorolac Tromethamine 30 mg ONCE ONCE IV 01/05/25 09:30 01/05/25 09:31 DC 01/05/25 11:54 Ondansetron HCl 4 mg ONCE ONCE IV 01/05/25 12:15 01/05/25 12:16 DC 01/05/25 12:13 Ondansetron HCl 4 mg ONCE ONCE PO 01/05/25 08:00 01/05/25 08:01 DC 01/05/25 08:02 Pantoprazole Sodium 40 mg ONCE ONCE IV 01/05/25 12:15 01/05/25 12:16 DC 01/05/25 12:13 Sodium Chloride 1,000 ml @ 1,000 mls/hr Q1H ONCE IV 01/05/25 09:30 01/05/25 10:29 DC 01/05/25 11:55 Departure 1 Departure Time of Disposition: 09:28 Impression: Primary Impression: Acute pyelonephritis Additional Impression: Calculus of both kidneys Disposition: ADMITTED INPATIENT Admit to: Med Surg Condition: Serious Critical Care Note Critical Care Time?: No Stability Stability form required: Yes Unstable for transfer: Requires medication, ED Physician Assesment, Possible rapid decline I personally scribed for VERONICA DAVIDSON ([email or web address]) on 01/05/25 at 08:02. Electronically submitted by Sarina Barrera ([facility]). I personally scribed for VERONICA DAVIDSON ([email or web address]) on 01/05/25 at 08:07. Electronically submitted by Sarina Barrera ([facility]). I personally scribed for VERONICA DAVIDSON ([email or web address]) on 01/05/25 at 09:29. Electronically submitted by Sarina Barrera ([facility]). I personally scribed for VERONICA DAVIDSON ([email or web address]) on 01/05/25 at 11:57. Electronically submitted by Sarina Barrera ([facility]). VERONICA DAVIDSON Jan 05, 2025 08:02
[2025-01-05 08:47] LABS: Nucleated Red Blood Cells % 0.0 %
[2025-01-05 08:48] LABS: Chloride 102 mmol/L (98-107); Potassium 3.7 mmol/L (3.5-5.1)
[2025-01-05 08:49] LABS: Anion Gap 12 (5-15); Calcium 9.2 mg/dL (8.7-10.4); Carbon Dioxide 21 mmol/L (20-31); Hematocrit 39.3 % (36.0-46.0); Hemoglobin 13.0 g/dL (12.2-16.2); Mean Corpuscular Hemoglobin 26.0 pg (28.0-32.0); Mean Corpuscular Volume 78.4 fL (80.0-100.0)
--- NOTE | 2025-01-05 08:50 | DVH ---
Exam: CT CT AB PEL WO CON-NO ORAL OR IV History: RIGHT SIDE LOWER ABD PAIN TO RIGHT LOWER BACK, HX OF KIDNEY Comparison Study: Report from a prior CT scan of the abdomen and pelvis dated 03/18/2024. Technique: Multidetector spiral CT of the abdomen and pelvis was performed from lung bases to pubic s ymphysis. Imaging was performed without intravenous contrast. Coronal and sagittal multiplanar reform ats were obtained from the axial data set by the technologist. Radiation Dose : 1. Abdomen/Pelvis: CTDIvol 19.92 mGy, DLP 1039.9 mGy*cm. Findings: Evaluation of vasculature and solid organs is limited due to lack of intravenous contrast use. Lung Bases: Lung bases are clear. Visualized portions of the heart and pericardium are unremarkable. Liver: The liver is enlarged. Limited evaluation for lesions without intravenous contrast. Hypoatten uating liver parenchyma consistent with hepatic steatosis. Gallbladder and Biliary Tree: The gallbladder is surgically absent. No intrahepatic or extrahepatic b iliary ductal dilatation. Spleen: The spleen is enlarged measuring 13.5 cm in length. Pancreas: The pancreas is grossly unremarkable. Adrenal Glands: Unremarkable Kidneys: Multiple Nonobstructive right intrarenal calculi measuring up to 1.3 cm in the lower pole of the right kidney. Nonobstructive left intrarenal calculi measuring up to 3 mm. GI tract: The stomach is grossly normal in appearance. No evidence of small bowel wall thickening or abnormal dilatation to suggest bowel obstruction. The colon is unremarkable. The appendix is visualiz ed and is normal. Peritoneum/mesentery/retroperitoneum. No evidence of free intraperitoneal air. No ascites. No evidenc e of suspicious lymphadenopathy. Abdominal Wall: Unremarkable. Vasculature: The visualized abdominal aorta is normal in size and caliber. Evaluation of abdominal a nd pelvic vessels is limited due to lack of intravenous contrast. Urinary Bladder: Grossly unremarkable for degree of distention. Pelvic Organs: Unremarkable Musculoskeletal: No aggressive focal bony lesions, acute fractures or dislocation. IMPRESSION: 1. No acute abdominal or pelvic findings. 2. Nonobstructive Bilateral intrarenal calculi, right greater than left. 3. Hepatomegaly and hepatic steatosis. 4. Splenomegaly.
[2025-01-05 08:54] LABS: BUN/Creatinine Ratio 17.0 (10.0-20.0); Blood Urea Nitrogen 16 mg/dL (9-23)
[2025-01-05 09:00] LABS: Glucose 168 mg/dL (74-106); Sodium 135 mmol/L (136-145)
[2025-01-05 09:18] LABS: Urine Protein, UAD 1+ (Negative); Urine WBC Clumps PRESENT /hpf (None Seen)
[2025-01-05] MEDS ORDERED: TAMSULOSIN HYDROCHLORIDE 0.4 MG CAP PO ONE (09:30)
[2025-01-05] MEDS: KETOROLAC TROMETH 30 MG/ML 1ML VIAL IV ONE (11:54)
[2025-01-05] MEDS: cefTRIAXone 1GM/50ML D5W 50 ML IV ONE (11:54)
[2025-01-05] MEDS: SODIUM CHLORIDE 0.9% 1,000 ML IV ONE ×2 (11:55→18:15)
[2025-01-05] MEDS: ONDANSETRON HCL 4 MG/2 ML VIAL IV ONE (12:13)
[2025-01-05] MEDS: PANTOPRAZOLE 40 MG/10 ML VIAL INJ IV ONE (12:13)
[2025-01-05] MEDS ORDERED: NITROGLYCERIN 0.4 MG SL TAB SL PRN (16:30)
[2025-01-05] MEDS ORDERED: ACETAMINOPHEN 325 MG TAB PO PRN (16:30)
[2025-01-05] MEDS: SODIUM CHLORIDE 0.9% 1,000 ML IV SCH (16:30)
[2025-01-05 17:03] LABS: Triglycerides 90.0 mg/dL (< 150)
[2025-01-05 17:05] LABS: Cholesterol 182.0 mg/dL (< 200)
--- NOTE | 2025-01-05 17:23 | DVHHP2 ---
MORENO FORD RESIDENT 01/05/25 1723: History of Present Illness History of Present Illness This is a 49-year-old female presents to the emergency department with complaints of nausea, vomiting, and chills, which began prior to ongoing urinary tract infection (UTI) symptoms. She was evaluated at this hospital yesterday for similar complaints. Today, she reports persistent back pain radiating to the right flank, 9/10 intensity, sharp in nature, intermittent, no aggravating or relieving factor. Patient also stated symptoms associated with nausea and vomiting few episodes but no blood mixed with vomitus. Patient febrile at home temperature 103 F with chills, feeling generalized weakness and decreased appetite. She has a known history of kidney stones. Patient also stated dysuria but no hematuria. Patient given history of stent placement on 08/23/2024 and complicated with stent infection which removed on September 02, 2024. The patient took Zofran at 6:30 AM for symptom relief. She denies cough, shortness of breath, chest pain, headache, or other complaints. No additional symptoms or modifying factors are reported at this time. The patient is alert, oriented to person, place, time, and situation, and ambulates with a steady gait. PAST MEDICAL HISTORY: Kidney Stones, hypothyroidism, UTI'S Surgical History: Cholecystectomy Family History: noncontributory Smoker: Non-Smoker Alcohol: Denies ETOH Use Drugs: Denies Drug Use Lives In: Home Allergy: Cipro, Levaquin, nitrofurantoin, sulfa PCP: Not selected Review of Systems Constitutional: Yes: Fever, Chills, Malaise; No: Sweats, Weakness, Other Eyes: No: Pain, Vision change, Conjunctivae inflammation, Eyelid inflammation, Other, Redness ENT: No: Ear pain, Ear discharge, Nose pain, Nose discharge, Nose congestion, Mouth pain, Mouth swelling, Throat pain, Throat swelling, Other Respiratory: No: Cough, Dry, Shortness of breath, SOB with excertion, Wheezing, Hemoptysis, Pleuritic Pain, Sputum, Wheezing, Other Cardiovascular: No: Chest Pain, Palpitations, Orthopnea, Paroxysmal Noc. Dyspnea, Edema, Lt Headedness, Other Gastrointestinal: Nausea, Vomiting, Abdominal Pain, Other (Appetite decreased) Genitourinary: Dysuria, Frequency; No Incontinence, No Hematuria, No Retention, No Other Musculoskeletal: No: other, neck pain, shoulder pain, arm pain, back pain, hand pain, leg pain, foot pain Skin: Other (Surgical scar tori back of right lower costal area); No: Rash, Lesions, Jaundice, Bruising Neurological: No: Weakness, Numbness, Incoordination, Change in speech, Confusion, Seizures, Other Allergies: Coded Allergies: Ciprofloxacin (Verified Allergy, Unknown, 12/26/21) Levofloxacin (Verified Allergy, Unknown, 12/26/21) Nitrofurantoin (Verified Allergy, Unknown, 12/26/21) Uncoded Allergies: SULFA (Allergy, Unknown, 12/26/21) Medications Current Medications Medications Dose Ordered Sig/Nelda Route Start Time Stop Time Status Last Admin Dose Admin Sodium Chloride 1,000 ml @ 120 mls/hr Q8H20M IV 01/05/25 16:30 Ondansetron HCl 4 mg Q4HP PRN IV 01/05/25 16:30 Enoxaparin Sodium 30 mg DAILY SC 01/06/25 10:00 Ketorolac Tromethamine 30 mg Q6HPRN PRN IV 01/05/25 16:30 01/10/25 16:29 Ceftriaxone Sodium 50 ml @ 100 mls/hr DAILY@09 IV 01/06/25 09:00 Acetaminophen 650 mg Q6HR PO 01/05/25 16:45 Levothyroxine Sodium 25 mcg QAM@0600 PO 01/06/25 06:00 Famotidine 20 mg DAILY PO 01/06/25 10:00 Exam Vital Signs Vital Signs Date Time Temp Pulse Resp B/P (MAP) Pulse Ox O2 Delivery O2 Flow Rate FiO2 01/05/25 15:29 97.8 71 16 109/64 (79) 97 97.8 01/05/25 11:53 Room Air General Appearance: Alert, Oriented X3, Cooperative, moderate distress HEENT: Atraumatic, PERRLA Respiratory: Clear to auscultation, Normal air movement Cardiovascular: Regular rate, Normal S1, Normal S2, No murmurs Abdominal: Normal bowel sounds, Soft, No tenderness, Other (Costovertebral angle tender on deep palpation bilaterally) Extremities: No clubbing, No cyanosis, No edema, Normal pulses Skin: No rashes, No breakdown Neuro: Normal gait, Normal speech Labs/Xrays Labs Test 8/8/25 08:20 01/05/25 07:52 01/05/25 07:32 Range/Units White Blood Count 18.9 H 4.4-10.8 10^3/uL Red Blood Count 5.02 4.0-5.20 10^6/uL Hemoglobin 13.0 12.2-16.2 g/dL Hematocrit 39.3 36.0-46.0 % Mean Corpuscular Volume 78.4 L 80.0-100.0 fL Mean Corpuscular Hemoglobin 26.0 L 28.0-32.0 pg Mean Corpuscular Hemoglobin Concent 33.2 32.0-36.0 g/dL Red Cell Distribution Width 16.8 H 11.8-14.3 % Platelet Count 340 140-450 10^3/uL Mean Platelet Volume 8.7 6.9-10.8 fL Neutrophils (%) (Auto) 90.0 H 37.0-80.0 % Lymphocytes (%) (Auto) 3.7 L 10.0-50.0 % Monocytes (%) (Auto) 6.1 0.0-12.0 % Eosinophils (%) (Auto) 0.0 0.0-7.0 % Basophils (%) (Auto) 0.2 0.0-2.0 % Neutrophils # (Auto) 17.0 H 1.6-8.6 10 ^3/uL Lymphocytes # (Auto) 0.7 0.4-5.4 10 ^3/uL Monocytes # (Auto) 1.1 0-1.3 10 ^3/uL Eosinophils # (Auto) 0 0-0.8 10 ^3/uL Basophils # (Auto) 0 0-0.2 10 ^3/uL Nucleated Red Blood Cells 0.0 % Sodium Level 135 L 136-145 mmol/L Potassium Level 3.7 3.5-5.1 mmol/L Chloride Level 102 98-107 mmol/L Carbon Dioxide Level 21 20-31 mmol/L Anion Gap 12 5-15 Blood Urea Nitrogen 16 9-23 mg/dL Creatinine 0.94 0.550-1.02 mg/dL Glomerular Filtration Rate Calc 73 >90 mL/min BUN/Creatinine Ratio 17.0 10.0-20.0 Serum Glucose 168 H 74-106 mg/dL Calcium Level 9.2 8.7-10.4 mg/dL Urine Color Light-orange Yellow Urine Clarity Turbid H Clear Urine pH 5.5 5.0-9.0 Urine Specific [place] 1.027 1.001-1.035 Urine Protein 1+ H Negative Urine Ketones 1+ H Negative Urine Blood 2+ H Negative /uL Urine Nitrite Negative Negative Urine Bilirubin Negative Negative Urine Urobilinogen Normal Negative mg/dL Urine Leukocyte Esterase 3+ Negative /uL Urine RBC 88 0 - 4 /hpf Urine WBC Clumps Present None Seen /hpf Urine Microscopic WBC 486 H 0-5 /HPF Urine Squamous Epithelial Cells Few <5 /hpf Urine Bacteria Few H None Seen /hpf Urine Mucus Few None Seen Urine Glucose Trace Normal mg/dL SEPSIS Sepsis Screen Date sepsis recognized/suspect: Jan 05, 2025 Time Sepsis recognized/suspect: 721 Recent Procedure: No On Antibiotic Therapy: Yes Respiratory Rate >20: No Heart Rate >90: Yes Temp<36 C (96.8 F) or >38.3 C: No SBP <90 or MAP <65 mmHG: No New Acute Mental Status Change: No Is the patient on CPAP, BIPAP,: No Physician Orders Heplock Iv (01/05/25 ) Admit (01/05/25 16:24) Allergies (01/05/25 16:24) Code Status (01/05/25 16:24) Sodium Chloride 0.9% (01/05/25 16:30) Ondansetron Hcl (Zofran) (01/05/25 16:30) Enoxaparin Sodium (Lovenox) (01/06/25 10:00) Ketorolac Injection (Toradol Injection) (01/05/25 16:30) Ceftriaxone 1gm/50ml D5w (Rocephin) (01/06/25 09:00) Blood Culture (01/05/25 16:24) Acetaminophen Tablet (Tylenol Tablet) (01/05/25 16:45) Sodium Chloride 0.9% (01/05/25 16:45) Lactic Acid W/ Reflex Order (01/05/25 16:42) Drug Screen (01/05/25 16:42) Thyroid Stimulating Hormone (01/05/25 16:42) Lipid Panel (01/05/25 16:42) Hemoglobin A1c (01/05/25 16:42) Uric Acid (01/05/25 16:42) Complete Blood Count (01/06/25 04:00) Comprehensive Metabolic Panel (01/06/25 04:00) Levothyroxine Tablet (Synthroid Tablet) (01/06/25 06:00) Famotidine Tablet (Pepcid Tablet) (01/06/25 10:00) Vital Signs Date Time Temp Pulse Resp B/P (MAP) Pulse Ox O2 Delivery O2 Flow Rate FiO2 01/05/25 15:29 97.8 71 16 109/64 (79) 97 97.8 01/05/25 11:53 98.5 112 18 142/75 (97) 97 98.5 01/05/25 11:53 112 18 97 Room Air 01/05/25 09:52 98.6 109 16 109/70 (83) 95 98.6 01/05/25 09:52 109 16 95 Room Air Laboratory Tests Test 01/05/25 08:20 White Blood Count 18.9 10^3/uL (4.4-10.8) H Medications Medications Dose Ordered Sig/Nelda Route Start Time Stop Time Status Last Admin Dose Admin Ceftriaxone Sodium 50 ml @ 100 mls/hr ONCE ONCE IV 01/05/25 09:30 01/05/25 09:59 DC 01/05/25 11:54 100 MLS/HR Ketorolac Tromethamine 30 mg ONCE ONCE IV 01/05/25 09:30 01/05/25 09:31 DC 01/05/25 11:54 30 MG Ondansetron HCl 4 mg ONCE ONCE IV 01/05/25 12:15 01/05/25 12:16 DC 01/05/25 12:13 4 MG Ondansetron HCl 4 mg ONCE ONCE PO 01/05/25 08:00 01/05/25 08:01 DC 01/05/25 08:02 4 MG Pantoprazole Sodium 40 mg ONCE ONCE IV 01/05/25 12:15 01/05/25 12:16 DC 01/05/25 12:13 40 MG Sodium Chloride 1,000 ml @ 1,000 mls/hr Q1H ONCE IV 01/05/25 09:30 01/05/25 10:29 DC 01/05/25 11:55 1,000 MLS/HR Assessment/Plan Assessment/Plan sepsis due to urinary tract infection Complicated UTI History of recurrent UTI, 10 episodes since May 2024 * Urinalysis showed Turbid appearance, blood 2+, bacteria few * CT scan showed, nonobstructive Bilateral intrarenal calculi, right greater than left. * Empiric antibiotic Rocephin * IV fluid * Pain management * Ordered urine culture Bilateral intrarenal calculi History of staghorn renal stone * History of bilateral renal calculi and stent placement on August 22 and removed on September 02 due to complication. * CT abdomen and pelvis:2. Nonobstructive Bilateral intrarenal calculi, right greater than left. * Uric acid level ordered Hypothyroidism * Levothyroxine 25 mcg p.o. q.a.m. * TSH level Hepatomegaly and hepatic steatosis Splenomegaly Diet: regular GI prophylaxis: Famotidine 20 mg p.o. daily DVT prophylaxis: Lovenox 30 mg sc daily Goals of care discussions, more than 29 minutes spent with patient. Full code status. Case discussed with Dr. Hanson Plan discussed with: Patient, Other (Nurse) My Orders Orders - MORENO FORD Procedure Category Date Status Time Admit ADMIT 01/05/25 Transmitted 16:24 Allergies CASE 01/05/25 In Process 16:24 Code Status CODE 01/05/25 Transmitted 16:24 Sodium Chloride 0.9% PHA 01/05/25 In Process 16:30 Ondansetron Hcl PHA 01/05/25 In Process (Zofran) 16:30 Enoxaparin Sodium PHA 01/06/25 In Process (Lovenox) 10:00 Ketorolac Injection PHA 01/05/25 In Process (Toradol Injection) 16:30 Ceftriaxone 1gm/50ml PHA 01/06/25 In Process D5w (Rocephin) 09:00 Blood Culture VERONICA 01/05/25 Logged 16:24 Date of Service: Jan 05, 2025 Billing Provider: HECTOR HANSON MD Common Visit Codes: [id number] INP/OBS CARE (HIGH) Secondary Visit Codes: [id number] CARE PLAN 30 MINUTES HECTOR HANSON MD 01/07/252111: Review of Systems Allergies: Coded Allergies: Ciprofloxacin (Verified Allergy, Unknown, 12/26/21) Levofloxacin (Verified Allergy, Unknown, 12/26/21) Nitrofurantoin (Verified Allergy, Unknown, 12/26/21) Uncoded Allergies: SULFA (Allergy, Unknown, 12/26/21) MORENO FORD Jan 05, 2025 17:23 HECTOR HANSON MD Jan 07, 2025 21:12
[2025-01-05 17:25] LABS: HDL Cholesterol 68.0 mg/dL (40-59)
[2025-01-05] MEDS: ACETAMINOPHEN 325 MG TAB PO SCH (18:00)
[2025-01-05] MEDS: LEVOTHYROXINE SODIUM 25 MCG TAB PO ONE (18:14)
[2025-01-05] MEDS: FAMOTIDINE 20 MG TAB PO ONE (18:14)
[2025-01-05 20:08] LABS: Uric Acid 4.5 mg/dL (3.1-7.8)
[2025-01-06] VITALS (8 sets, daily range): BP systolic 87–137; BP diastolic 52–84; PULSE 63–95; RESP 18–20; TEMP 97.9–98.1; O2SAT 92–96
[2025-01-06] MEDS: KETOROLAC TROMETH 30 MG/ML 1ML VIAL IV PRN (02:16)
[2025-01-06] MEDS: LEVOTHYROXINE SODIUM 25 MCG TAB PO SCH (05:31)
[2025-01-06] MEDS ORDERED: LEVO25TA6 PO (06:41)
[2025-01-06 07:35] LABS: Hemoglobin 11.3 g/dL (12.2-16.2); Nucleated Red Blood Cells % 0.0 %
[2025-01-06 07:37] LABS: Hematocrit 34.3 % (36.0-46.0); Mean Corpuscular Hemoglobin 26.2 pg (28.0-32.0); Mean Corpuscular Volume 79.8 fL (80.0-100.0)
[2025-01-06 07:57] LABS: Alanine Aminotransferase 23 U/L (7-40); Alkaline Phosphatase 102 U/L (46-116); Anion Gap 10 (5-15); BUN/Creatinine Ratio 15.2 (10.0-20.0); Blood Urea Nitrogen 12 mg/dL (9-23); Calcium 8.7 mg/dL (8.7-10.4); Carbon Dioxide 25 mmol/L (20-31); Chloride 105 mmol/L (98-107); Glucose 80 mg/dL (74-106); Sodium 140 mmol/L (136-145); Total Protein 7.1 g/dL (5.7-8.2)
[2025-01-06 07:58] LABS: Albumin 4.2 g/dL (3.2-4.8); Bilirubin, Total 0.8 mg/dL (0.2-1.0)
[2025-01-06 08:18] LABS: Potassium 3.1 mmol/L (3.5-5.1)
[2025-01-06] MEDS: cefTRIAXone 1GM/50ML D5W 50 ML IV SCH (10:24)
[2025-01-06] MEDS: FAMOTIDINE 20 MG TAB PO SCH (10:26)
[2025-01-06] MEDS: ENOXAPARIN SOD 30 MG/0.3 ML SYRINGE SC SCH (10:27)
[2025-01-06] MEDS: ONDANSETRON HCL 4 MG/2 ML VIAL IV PRN (11:05)
--- NOTE | 2025-01-06 17:23 | DVHPN2 ---
Subjective This is a follow up on sepsis secondary to UTI currently on IV antibiotics. Patient is allergic to ciprofloxacin Levaquin, nitrofurantoin and sulfa. Changes from previous H/P or p: No Changes Eyes: No Pain, No Vision change, No Conjunctivae inflammation, No Eyelid inflammation, No Other, No Redness ENT: No Ear pain, No Ear discharge, No Nose pain, No Nose discharge, No Nose congestion, No Mouth pain, No Mouth swelling, No Throat pain, No Throat swelling, No Other Cardiovascular: No Chest Pain, No Palpitations, No Orthopnea, No Paroxysmal Noc. Dyspnea, No Edema, No Lt Headedness, No Other Respiratory: No Cough, No Dry, No Shortness of breath, No SOB with excertion, No Wheezing, No Hemoptysis, No Pleuritic Pain, No Sputum, No Other Gastrointestinal: Nausea, Vomiting, Abdominal Pain, Other (Appetite decreased) Genitourinary: Dysuria, Frequency; No Incontinence, No Hematuria, No Retention, No Other Musculoskeletal: No other, No neck pain, No shoulder pain, No arm pain, No back pain, No hand pain, No leg pain, No foot pain Skin: No Rash, No Lesions, No Jaundice, No Bruising; Other (Surgical scar tori back of right lower costal area) Objective Vitals Vital Signs Date Time Temp Pulse Resp B/P (MAP) Pulse Ox O2 Delivery O2 Flow Rate FiO2 01/06/25 08:06 63 18 90/52 (65) 01/06/25 07:40 93 01/06/25 05:00 97.9 97.9 01/06/25 01:32 Room Air* 0 21 Intake/Output Intake and Output 01/06/25 07:00 Intake Total 2050 ml Balance 2050 ml Intake IV Total 2050 ml # Voids 3 Exam HEENT pupils are reactive Neck is supple CV is S1-S2 regular rate and rhythm Respiratory bilateral clear GI positive bowel sound Extremity no edema 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 Medications Current Medications Medications Dose Ordered Sig/Nelda Route Start Time Stop Time Status Last Admin Dose Admin Sodium Chloride 1,000 ml @ 120 mls/hr Q8H20M IV 01/05/25 16:30 01/06/25 10:26 120 MLS/HR Ondansetron HCl 4 mg Q4HP PRN IV 01/05/25 16:30 01/06/25 11:05 4 MG Enoxaparin Sodium 30 mg DAILY SC 01/06/25 10:00 01/06/25 10:27 30 MG Ketorolac Tromethamine 30 mg Q6HPRN PRN IV 01/05/25 16:30 01/10/25 16:29 01/06/25 02:16 30 MG Ceftriaxone Sodium 50 ml @ 100 mls/hr DAILY@09 IV 01/06/25 09:00 01/06/25 10:24 100 MLS/HR Acetaminophen 650 mg Q6HR PO 01/05/25 16:45 01/06/25 12:55 650 MG Levothyroxine Sodium 25 mcg QAM@0600 PO 01/06/25 06:00 01/06/25 05:31 25 MCG Famotidine 20 mg DAILY PO 01/06/25 10:00 01/06/25 10:26 20 MG Laboratory Results Laboratory Tests 01/06/25 05:47 Chemistry Test 01/06/25 05:47 Albumin 4.2 g/dL (3.2-4.8) Calcium Level 8.7 mg/dL (8.7-10.4) Total Protein 7.1 g/dL (5.7-8.2) LFT Test 01/06/25 05:47 Alanine Aminotransferase (ALT) 23 U/L (7-40) Alkaline Phosphatase 102 U/L (46-116) Aspartate Amino Transferase (AST) 25 U/L (13-40) Total Bilirubin 0.8 mg/dL (0.2-1.0) Urinalysis Test 01/05/25 07:52 Urine Color Light-orange (Yellow) Urine Clarity Turbid (Clear) H Urine pH 5.5 (5.0-9.0) Urine Specific [place] 1.027 (1.001-1.035) Urine Protein 1+ (Negative) H Urine Ketones 1+ (Negative) H Urine Blood 2+ /uL (Negative) H Urine Nitrite Negative (Negative) Urine Bilirubin Negative (Negative) Urine Urobilinogen Normal mg/dL (Negative) Urine Leukocyte Esterase 3+ /uL (Negative) Urine RBC 88 /hpf (0 - 4) Urine WBC Clumps Present /hpf (None Seen) Urine Microscopic WBC 486 /HPF (0-5) H Urine Squamous Epithelial Cells Few /hpf (<5) Urine Bacteria Few /hpf (None Seen) H Urine Mucus Few (None Seen) Urine Glucose Trace mg/dL (Normal) Microbiology Microbiology Date/Time Source Procedure Growth Status 01/05/25 07:54 Voided Urine Urine Culture - Preliminary Resulted Assessment/Plan Assessment/Plan 49-year-old female with a known history of recent UTI was treated in the ER presented to the hospital with a fevers chills dysuria and abdominal pain found to have 1. Sepsis secondary to UTI 2. Complicated UTI 3. Recurrent kidney stones 4. Leukocytosis 5. Hypothyroidism -IV fluids, IV antibiotics, -follow up blood culture urine culture. -discharge plan in next 24-48 hours. Plan discussed with: Patient Date of Service: Jan 06, 2025 Billing Provider: LEWIS REINA MD Common Visit Codes: [id number] INP/OBS CARE(MOD) LEWIS REINA MD Jan 06, 2025 17:23
[2025-01-07] VITALS (9 sets, daily range): BP systolic 108–141; BP diastolic 56–86; PULSE 40–97; RESP 18–20; TEMP 96.5–98.4; O2SAT 95–98
[2025-01-07] MEDS: POTASSIUM CHL 20 Meq TABLET PO SCH (12:37)
--- NOTE | 2025-01-07 13:54 | DVHPN2 ---
Subjective This is a follow up on sepsis secondary to UTI currently on IV antibiotics. Patient is allergic to ciprofloxacin Levaquin, nitrofurantoin and sulfa. Patient is complaining of nausea and lower abdominal pain today. Changes from previous H/P or p: No Changes Eyes: No Pain, No Vision change, No Conjunctivae inflammation, No Eyelid inflammation, No Other, No Redness ENT: No Ear pain, No Ear discharge, No Nose pain, No Nose discharge, No Nose congestion, No Mouth pain, No Mouth swelling, No Throat pain, No Throat swelling, No Other Cardiovascular: No Chest Pain, No Palpitations, No Orthopnea, No Paroxysmal Noc. Dyspnea, No Edema, No Lt Headedness, No Other Respiratory: No Cough, No Dry, No Shortness of breath, No SOB with excertion, No Wheezing, No Hemoptysis, No Pleuritic Pain, No Sputum, No Other Gastrointestinal: Nausea, Vomiting, Abdominal Pain, Other (Appetite decreased) Genitourinary: Dysuria, Frequency; No Incontinence, No Hematuria, No Retention, No Other Musculoskeletal: No other, No neck pain, No shoulder pain, No arm pain, No back pain, No hand pain, No leg pain, No foot pain Skin: No Rash, No Lesions, No Jaundice, No Bruising; Other (Surgical scar tori back of right lower costal area) Objective Vitals Vital Signs Date Time Temp Pulse Resp B/P (MAP) Pulse Ox O2 Delivery O2 Flow Rate FiO2 01/07/25 12:36 97.1 97 20 124/76 (92) 97 97.1 01/07/25 08:00 Room Air* 0 21 Intake/Output Intake and Output 01/07/25 07:00 Intake Total 1520 ml Balance 1520 ml Intake Oral 800 ml IV Total 720 ml # Voids 4 Exam HEENT pupils are reactive Neck is supple CV is S1-S2 regular rate and rhythm Respiratory bilateral clear GI positive bowel sound Extremity no edema OVEN T[employer]ER [employer]AGELS no motor deficit Medications Current Medications Medications Dose Ordered Sig/Nelda Route Start Time Stop Time Status Last Admin Dose Admin Sodium Chloride 1,000 ml @ 120 mls/hr Q8H20M IV 01/05/25 16:30 01/07/25 10:10 120 MLS/HR Ondansetron HCl 4 mg Q4HP PRN IV 01/05/25 16:30 01/07/25 12:32 4 MG Enoxaparin Sodium 30 mg DAILY SC 01/06/25 10:00 01/07/25 08:58 30 MG Ketorolac Tromethamine 30 mg Q6HPRN PRN IV 01/05/25 16:30 01/10/25 16:29 01/06/25 22:29 30 MG Ceftriaxone Sodium 50 ml @ 100 mls/hr DAILY@09 IV 01/06/25 09:00 01/07/25 08:53 100 MLS/HR Acetaminophen 650 mg Q6HR PO 01/05/25 16:45 01/07/25 12:22 650 MG Levothyroxine Sodium 25 mcg QAM@0600 PO 01/06/25 06:00 01/07/25 05:15 25 MCG Famotidine 20 mg DAILY PO 01/06/25 10:00 01/07/25 08:57 20 MG Potassium Chloride 20 meq Q2H PO 01/07/25 12:30 01/07/25 16:31 01/07/25 12:37 20 MEQ Laboratory Results Laboratory Tests 01/06/25 05:47 Urinalysis Test 01/05/25 07:52 Urine Color Light-orange (Yellow) Urine Clarity Turbid (Clear) H Urine pH 5.5 (5.0-9.0) Urine Specific [place] 1.027 (1.001-1.035) Urine Protein 1+ (Negative) H Urine Ketones 1+ (Negative) H Urine Blood 2+ /uL (Negative) H Urine Nitrite Negative (Negative) Urine Bilirubin Negative (Negative) Urine Urobilinogen Normal mg/dL (Negative) Urine Leukocyte Esterase 3+ /uL (Negative) Urine RBC 88 /hpf (0 - 4) Urine WBC Clumps Present /hpf (None Seen) Urine Microscopic WBC 486 /HPF (0-5) H Urine Squamous Epithelial Cells Few /hpf (<5) Urine Bacteria Few /hpf (None Seen) H Urine Mucus Few (None Seen) Urine Glucose Trace mg/dL (Normal) Microbiology Microbiology Date/Time Source Procedure Growth Status 01/05/25 17:00 Blood Blood Culture - Preliminary NO GROWTH AFTER 24 HOURS OF INCUBATION. Resulted 01/05/25 07:54 Voided Urine Urine Culture - Final Complete Assessment/Plan Assessment/Plan 49-year-old female with a known history of recent UTI was treated in the ER presented to the hospital with a fevers chills dysuria and abdominal pain found to have 1. Sepsis secondary to UTI 2. Complicated UTI 3. Recurrent kidney stones 4. Leukocytosis 5. Hypothyroidism 6. Diarrhea rule out C diff- Check stool for C diff -IV fluids, IV antibiotics, -follow up blood culture urine culture. -discharge plan in next 24-48 hours. Plan discussed with: Patient My Orders Orders - LEWIS REINA MD Procedure Category Date Status Time Potassium Er Tablet PHA 01/07/25 In Process (Klor-Con Tablet) 12:30 Date of Service: Jan 07, 2025 Billing Provider: LEWIS REINA MD Common Visit Codes: [id number] INP/OBS CARE(MOD) LEWIS REINA MD Jan 07, 2025 13:54
[2025-01-07] MEDS: POTASSIUM CHL 20 Meq TABLET PO ONE ×2 (18:52)
[2025-01-08 01:19] VITALS: BP 117/75; PULSE 72; RESP 17; TEMP 97.8; O2SAT 95
[2025-01-08 05:15] VITALS: BP 103/59; PULSE 72; RESP 16; TEMP 97.8; O2SAT 96
[2025-01-08 09:00] VITALS: BP 136/88; PULSE 72; RESP 16; TEMP 97.6; O2SAT 97
[2025-01-08 12:51] VITALS: BP 124/67; PULSE 61; RESP 18; TEMP 97.6; O2SAT 99
--- NOTE | 2025-01-08 14:53 | DVH ---
Exam: CT CT AB PEL WO CON-NO ORAL OR IV History: abd pain Comparison Study: CT CT AB PEL WO CON-NO ORAL OR IV on DOS: 01/05/25, CT ABD PELVIS WO CONTRAST on DOS: 12/26/21 Technique: Multidetector spiral CT of the abdomen and pelvis was performed from lung bases to pubic symphysis. Imaging was performed without IV contrast. Axial, coronal and sagittal multiplanar reform ats were obtained from the axial data set by the technologist. Radiation dose : Abdomen/Pelvis: CTDIvol 17 mGy, DLP 1004 mGy*cm. Findings: Evaluation of solid organs is limited due to lack of intravenous contrast use. Lung Bases: Atelectasis and consolidation in the lung bases. Trace bilateral pleural effusions. Mode rate cardiomegaly. Liver: Diffuse hepatic steatosis. Gallbladder and biliary Tree: Gallbladder is surgically absent. Spleen: Unremarkable Pancreas: The pancreas is grossly normal in appearance. Adrenal Glands: Unremarkable Kidneys: Moderate right hydronephrosis and hydroureter. No obstructing ureteral calculus identified. Bilateral renal calculi, larger on the right measuring up to 10 mm. No left hydronephrosis. Bladder: Grossly unremarkable for degree of distention. Bowel: The stomach is grossly normal in appearance. Small bowel and colon are normal in caliber and d istribution. The appendix is not visualized; however, no secondary findings of acute appendicitis henna ntified. Ascites: Absent Lymphadenopathy: No mesenteric, retroperitoneal or periportal lymphadenopathy. Abdominal wall and Mesentery: Unremarkable. Vasculature: The visualized abdominal aorta is normal in size and caliber. Evaluation of abdominal a nd pelvic vessels is limited due to lack of intravenous contrast. Pelvic Organs: Unremarkable Musculoskeletal: No aggressive focal bony lesions, acute fractures or dislocation. IMPRESSION: 1. Moderate right hydronephrosis and hydroureter similar to prior. No definite obstructing ureteral calculus identified. Consider urinary tract infection. This can be further evaluated with CT urogram. Bilateral nonobstructive renal calculi larger on the right. 2. Trace bilateral pleural effusions. Bibasilar atelectasis and consolidation. 3. Diffuse hepatic steatosis. Radiation optimization: All CT scans at this facility use at least one of these dose optimization renee hniques: Automated exposure control mA and/or kV adjustment per patient size (includes targeted exams where dose is matched to clinical indication) or iterative reconstruction. HS:Y
[2025-01-08 15:23] LABS: Anion Gap 11 (5-15); Carbon Dioxide 23 mmol/L (20-31)
[2025-01-08 15:27] LABS: Calcium 8.6 mg/dL (8.7-10.4); Chloride 108 mmol/L (98-107); Potassium 3.6 mmol/L (3.5-5.1); Sodium 142 mmol/L (136-145)
[2025-01-08 15:29] LABS: BUN/Creatinine Ratio 10.9 (10.0-20.0); Blood Urea Nitrogen 7 mg/dL (9-23); Glucose 112 mg/dL (74-106)
--- NOTE | 2025-01-08 16:01 | DVHINCON2 ---
Date of service: Jan 08, 2025 Referring Physician Hospitalist Reason for Consultation Bilateral nonobstructing nephrolithiasis Fever Presumed sepsis due to UTI, but urine culture negative History of Present Illness Patient is admitted to [facility] for nausea, vomiting and chills with suspected UTI. Urine culture was negative. She has history of kidney stones and CT scan of the abdomen and pelvis on this admission shows multiple bilateral nephrolithiasis, nonobstructing. There is no hydronephrosis. She has previously undergone right PCNL by Dr. Vail of [facility]. She also underwent endoscopic laser lithotripsy and is currently under the care of Dr. Mark Vail. Chief Complaint: Nausea/Vomiting Primary Care Provider: NONE Reviewed Notes: Nurses Notes, Medications, Allergies Allergies: Coded Allergies: Ciprofloxacin (Verified Allergy, Unknown, 12/26/21) Levofloxacin (Verified Allergy, Unknown, 12/26/21) Nitrofurantoin (Verified Allergy, Unknown, 12/26/21) Uncoded Allergies: SULFA (Allergy, Unknown, 12/26/21) Home Meds Active Scripts Naproxen (Naproxen) 375 Mg Tab, 1 TAB PO BID PRN for 10 Days, #20 TAB 5 Refills Prov:LOREN MIN DO 12/28/21 Reported Medications Vardenafil Hydrochloride (Levitra) 20 Mg Tab, 1 TAB PO DAILYP, #6 TAB 11 Refills 12/26/21 Omeprazole (Gnp Omeprazole) 20 Mg Tab, 1 TAB PO DAILY, #90 TAB 1 Refill 12/26/21 Information Source: Patient Mode of Arrival: Ambulatory Severity: Moderate Timing: Days, Came on: Gradually Duration: Since onset, Days Medication Refill: For: Other (UTI SYMPTOMS WITH NAUSEA AND VOMITING ) Past Medical History Kidney Stones, Thyroid, UTI'S Past Surgical History PCNL URSLL Cholecystectomy ALLERGY AND IMMUNOLOGY CHIEF History: No Pertinent ALLERGY AND IMMUNOLOGY CHIEF History Family History: Patient reports no known family medical history. Allergies: Coded Allergies: Ciprofloxacin (Verified Allergy, Unknown, 12/26/21) Levofloxacin (Verified Allergy, Unknown, 12/26/21) Nitrofurantoin (Verified Allergy, Unknown, 12/26/21) Uncoded Allergies: SULFA (Allergy, Unknown, 12/26/21) Home Meds Reported Medications Levothyroxine Sodium (Levothyroxine Sodium) 25 Mcg Tab, 1 TAB PO DAILY, #30 TAB 5 Refills 01/06/25 Review of Systems Constitutional: reports: chills, others (ANXIOUS ); denies: diaphoresis, fati libia, fever, malaise, sweats, weakness EENTM: denies: blurred vision, double vision, ear bleeding, ear discharge, ear drainage, ear pain, ear ringing, eye pain, eye redness, hearing loss, mouth pain, mouth swelling, nasal discharge, nose bleeding, nose congestion, nose pain, photophobia, tearing, throat pain, throat swelling, voice changes, others Respiratory: denies: cough, hemoptysis, orthopnea, SOB at rest, shortness of breath, SOB with excertion, stridor, wheezing, others Cardiovascular: denies: chest pain, dizzy spells, diaphoresis, Dyspnea on exertion, edema, irregular heart beat, left arm pain, lightheadedness, palpitations, PND, syncope, others Gastrointestinal: reports: abdominal pain, nausea, vomiting; denies: abdomen distended, blood streaked bowels, constipated, diarrhea, dysphagia, difficulty swallowing, hematemesis, melena, poor appetite, poor fluid intake, rectal bleeding, rectal pain, others Genitourinary: reports: burning, flank pain, frequency, hematuria, urgency; denies: abnormal vagina bleeding, dyspareunia, dysuria, incontinence, pain, , vagina discharge, others Neurological: denies: dizziness, fainting, headache, left sided numbness, left sided weakness, numbness, paresthesia, pre-existing deficit, right sided numbness, right sided weakness, seizure, speech problems, tingling, tremors, weakness, others Musculoskeletal: reports: back pain; denies: gout, joint pain, joint swelling, muscle pain, muscle stiffness, neck pain, others Integumetry: denies: bruises, change in color, change in hair/nails, dryness, laceration, lesions, lumps, rash, wounds, others Allergic/Immunocompromised: denies: Difficulty Healing, Frequent Infections, Hives, Itching, others Hematologic/Lymphatic: denies: anemia, blood clots, easy bleeding, easy bruising, swollen glands, others Endocrine: denies: excessive hunger, excessive sweating, excessive thirst, excessive urination, flushing, intolerance to cold, intolerance to heat, unexplained weight gain, unexplained weight loss, others Psychiatric: reports: anxiety; denies: bipolar disorder, depression, hopeless, panic disorder, schizophrenia, sleepless, suicidal, others All Other Systems: Reviewed and Negative Vital Signs Vital Signs Date Time Temp Pulse Resp B/P (MAP) Pulse Ox O2 Delivery O2 Flow Rate FiO2 01/08/25 12:51 97.6 61 18 124/67 (86) 99 97.6 01/07/25 20:00 Room Air* 0 21 Physical Exam General Appearance: Mild Distress, Normal, Other (ANXIOUS ) HEENT: Normal ENT Inspection, PERRL/EOMI, Pharynx Normal, TMs Normal Neck: Full Range of Motion, Non-Tender, Normal, Normal Inspection Respiratory: Chest Non-Tender, Lungs Clear, No Accessory Muscle Use, No Respiratory Distress, Normal Breath Sounds Cardiovascular: No Edema, No JVD, No Murmur, No Gallop, Normal Peripheral Pulses, Regular Rate/Rhythm Breast Exam: Deferred Gastrointestinal: LLQ, No Organomegaly, No Pulsatile Mass, Normal Bowel Sounds, RLQ, Soft, Suprapubic, Tenderness (LOWER ABD, NO GUARDING AND REBOUND TENDERNESS. +CVA TENDERNESS ON RIGHT FLANK. ) Genitalia: Deferred Pelvic: Normal External Exam Rectal: Deferred Extremities: No calf tenderness, Normal capillary refill, Normal inspection, Normal range of motion, Non-tender, No pedal edema Musculoskeletal : Location: Bilateral Extremity Location: Back Apperance: Tenderness (LOWER BACK, NO BONY TENDERNESS, SWELLING AND DEFORMITY, +CVA TENDERNESS. ) Neurologic: Alert, bank officer II-XII nml as Tested, No Motor Deficits, Normal Affect, Normal Mood, No Sensory Deficits Cerebellar Function: Normal Reflexes: Normal Skin: Dry, Normal Color, Warm Peripheral Pulses: 2+ carotid (R), 2+ carotid (L), 2+ dorsalis pedis (R), 2+ dorsalis pedis (L) Lymphatic: No Adenopathy Labs/Diagnostic Data Labs Test 01/08/25 14:55 01/06/25 05:47 01/05/25 21:15 01/05/25 08:20 Range/Units Sodium Level 142 136-145 mmol/L Potassium Level 3.6 3.5-5.1 mmol/L Chloride Level 108 H 98-107 mmol/L Carbon Dioxide Level 23 20-31 mmol/L Anion Gap 11 5-15 Blood Urea Nitrogen 7 L 9-23 mg/dL Creatinine 0.64 0.550-1.02 mg/dL Glomerular Filtration Rate Calc 107 >90 mL/min BUN/Creatinine Ratio 10.9 10.0-20.0 Serum Glucose 112 H 74-106 mg/dL Calcium Level 8.6 L 8.7-10.4 mg/dL White Blood Count 10.2 # 4.4-10.8 10^3/uL Red Blood Count 4.30 4.0-5.20 10^6/uL Hemoglobin 11.3 L 12.2-16.2 g/dL Hematocrit 34.3 #L 36.0-46.0 % Mean Corpuscular Volume 79.8 L 80.0-100.0 fL Mean Corpuscular Hemoglobin 26.2 L 28.0-32.0 pg Mean Corpuscular Hemoglobin Concent 32.9 32.0-36.0 g/dL Red Cell Distribution Width 16.9 H 11.8-14.3 % Platelet Count 276 140-450 10^3/uL Mean Platelet Volume 9.1 6.9-10.8 fL Neutrophils (%) (Auto) 77.4 37.0-80.0 % Lymphocytes (%) (Auto) 12.8 10.0-50.0 % Monocytes (%) (Auto) 9.7 0.0-12.0 % Eosinophils (%) (Auto) 0.0 0.0-7.0 % Basophils (%) (Auto) 0.1 0.0-2.0 % Neutrophils # (Auto) 7.9 1.6-8.6 10 ^3/uL Lymphocytes # (Auto) 1.3 0.4-5.4 10 ^3/uL Monocytes # (Auto) 1.0 0-1.3 10 ^3/uL Eosinophils # (Auto) 0 0-0.8 10 ^3/uL Basophils # (Auto) 0 0-0.2 10 ^3/uL Nucleated Red Blood Cells 0.0 % Total Bilirubin 0.8 0.2-1.0 mg/dL Aspartate Amino Transferase (AST) 25 13-40 U/L Alanine Aminotransferase (ALT) 23 7-40 U/L Alkaline Phosphatase 102 46-116 U/L Total Protein 7.1 5.7-8.2 g/dL Albumin 4.2 3.2-4.8 g/dL Lactic Acid Level 1.1 0.4-2.0 mmol/L Hemoglobin A1c 5.7 <5.7 % A1C Uric Acid 4.5 3.1-7.8 mg/dL Triglycerides Level 90 < 150 mg/dL Cholesterol Level 182 < 200 mg/dL LDL Cholesterol 101 H < 100 mg/dL HDL Cholesterol 68 H 40-59 mg/dL Thyroid Stimulating Hormone (TSH) 1.29 0.55-4.78 uIU/mL Test 01/05/25 07:52 Range/Units Urine Color Light-orange Yellow Urine Clarity Turbid H Clear Urine pH 5.5 5.0-9.0 Urine Specific [place] 1.027 1.001-1.035 Urine Protein 1+ H Negative Urine Ketones 1+ H Negative Urine Blood 2+ H Negative /uL Urine Nitrite Negative Negative Urine Bilirubin Negative Negative Urine Urobilinogen Normal Negative mg/dL Urine Leukocyte Esterase 3+ Negative /uL Urine RBC 88 0 - 4 /hpf Urine WBC Clumps Present None Seen /hpf Urine Microscopic WBC 486 H 0-5 /HPF Urine Squamous Epithelial Cells Few <5 /hpf Urine Bacteria Few H None Seen /hpf Urine Mucus Few None Seen Urine Glucose Trace Normal mg/dL Microbiology Date/Time Source Procedure Growth Status 01/05/25 17:00 Blood Blood Culture - Preliminary NO GROWTH AFTER 48 HOURS OF INCUBATION. Resulted 01/05/25 07:54 Voided Urine Urine Culture - Final Complete Assessment Bilateral nephrolithiasis Right flank pain Plan/Recommendation Pain control Outpatient followup with Dr. Vail for further management of urolithiasis Signing off Plan discussed with: Patient, Other JES PENA MD Jan 08, 2025 16:01
--- NOTE | 2025-01-08 16:12 | DVHPN2 ---
Subjective This is a follow up on sepsis secondary to UTI currently on IV antibiotics. Patient is allergic to ciprofloxacin Levaquin, nitrofurantoin and sulfa. Still complaining of lower abdominal pain right flank pain as well as diarrhea, stool for C diff is pending. Changes from previous H/P or p: No Changes Eyes: No Pain, No Vision change, No Conjunctivae inflammation, No Eyelid inflammation, No Other, No Redness ENT: No Ear pain, No Ear discharge, No Nose pain, No Nose discharge, No Nose congestion, No Mouth pain, No Mouth swelling, No Throat pain, No Throat swelling, No Other Cardiovascular: No Chest Pain, No Palpitations, No Orthopnea, No Paroxysmal Noc. Dyspnea, No Edema, No Lt Headedness, No Other Respiratory: No Cough, No Dry, No Shortness of breath, No SOB with excertion, No Wheezing, No Hemoptysis, No Pleuritic Pain, No Sputum, No Other Gastrointestinal: Nausea, Vomiting, Abdominal Pain, Other (Appetite decreased) Genitourinary: Dysuria, Frequency; No Incontinence, No Hematuria, No Retention, No Other Musculoskeletal: No other, No neck pain, No shoulder pain, No arm pain, No back pain, No hand pain, No leg pain, No foot pain Skin: No Rash, No Lesions, No Jaundice, No Bruising; Other (Surgical scar tori back of right lower costal area) Objective Vitals Vital Signs Date Time Temp Pulse Resp B/P (MAP) Pulse Ox O2 Delivery O2 Flow Rate FiO2 01/08/25 12:51 97.6 61 18 124/67 (86) 99 97.6 01/08/25 08:00 Room Air* 0 21 Intake/Output Intake and Output 01/08/25 07:00 Intake Total 970 ml Balance 970 ml Intake Oral 920 ml IV Total 50 ml # Voids 4 # Bowel Movements 4 Exam HEENT pupils are reactive Neck is supple CV is S1-S2 regular rate and rhythm Respiratory bilateral clear GI positive bowel sound Extremity no edema [employer] no motor deficit Medications Current Medications Medications Dose Ordered Sig/Nelda Route Start Time Stop Time Status Last Admin Dose Admin Sodium Chloride 1,000 ml @ 120 mls/hr Q8H20M IV 01/05/25 16:30 01/08/25 14:40 120 MLS/HR Ondansetron HCl 4 mg Q4HP PRN IV 01/05/25 16:30 01/08/25 08:32 4 MG Enoxaparin Sodium 30 mg DAILY SC 01/06/25 10:00 01/07/25 08:58 30 MG Ketorolac Tromethamine 30 mg Q6HPRN PRN IV 01/05/25 16:30 01/10/25 16:29 01/08/25 08:32 30 MG Ceftriaxone Sodium 50 ml @ 100 mls/hr DAILY@09 IV 01/06/25 09:00 01/08/25 08:31 100 MLS/HR Acetaminophen 650 mg Q6HR PO 01/05/25 16:45 01/08/25 05:00 650 MG Levothyroxine Sodium 25 mcg QAM@0600 PO 01/06/25 06:00 01/08/25 05:00 25 MCG Famotidine 20 mg DAILY PO 01/06/25 10:00 01/08/25 08:31 20 MG Laboratory Results Laboratory Tests 01/06/25 05:47 01/08/25 14:55 Chemistry Test 01/08/25 14:55 Calcium Level 8.6 mg/dL (8.7-10.4) L Urinalysis Test 01/05/25 07:52 Urine Color Light-orange (Yellow) Urine Clarity Turbid (Clear) H Urine pH 5.5 (5.0-9.0) Urine Specific [place] 1.027 (1.001-1.035) Urine Protein 1+ (Negative) H Urine Ketones 1+ (Negative) H Urine Blood 2+ /uL (Negative) H Urine Nitrite Negative (Negative) Urine Bilirubin Negative (Negative) Urine Urobilinogen Normal mg/dL (Negative) Urine Leukocyte Esterase 3+ /uL (Negative) Urine RBC 88 /hpf (0 - 4) Urine WBC Clumps Present /hpf (None Seen) Urine Microscopic WBC 486 /HPF (0-5) H Urine Squamous Epithelial Cells Few /hpf (<5) Urine Bacteria Few /hpf (None Seen) H Urine Mucus Few (None Seen) Urine Glucose Trace mg/dL (Normal) Microbiology Microbiology Date/Time Source Procedure Growth Status 01/05/25 17:00 Blood Blood Culture - Preliminary NO GROWTH AFTER 48 HOURS OF INCUBATION. Resulted 01/05/25 07:54 Voided Urine Urine Culture - Final Complete Assessment/Plan Assessment/Plan 49-year-old female with a known history of recent UTI was treated in the ER presented to the hospital with a fevers chills dysuria and abdominal pain found to have 1. Sepsis secondary to UTI 2. Complicated UTI 3. Recurrent kidney stones 4. Leukocytosis 5. Hypothyroidism 6. Diarrhea rule out C diff- -repeat CT abdomen and pelvis -Check stool for C diff -IV fluids, IV antibiotics, -cultures are negative to date. -discharge plan in next 24-48 hours. Plan discussed with: Patient My Orders Orders - LEWIS REINA MD Procedure Category Date Status Time * Urology Consult CONS 01/08/25 Transmitted 13:42 Basic Metabolic Panel LAB 01/09/25 Verified 06:00 Complete Blood Count LAB 01/09/25 Verified 06:00 Magnesium LAB 01/09/25 Verified 06:00 Ct Ab Pel Wo Con-No CT 01/08/25 Resulted Oral Or Iv 13:48 Date of Service: Jan 08, 2025 Billing Provider: LEWIS REINA MD Common Visit Codes: [id number] INP/OBS CARE(MOD) LEWIS REINA MD Jan 08, 2025 16:12
[2025-01-08 17:15] VITALS: BP 137/83; PULSE 66; RESP 18; TEMP 97.5; O2SAT 98
[2025-01-08 20:00] VITALS: BP 120/72; PULSE 63; RESP 17; TEMP 97.4; O2SAT 96
[2025-01-09 01:16] VITALS: BP 114/69; PULSE 63; RESP 16; TEMP 97.8; O2SAT 97
[2025-01-09 05:10] VITALS: BP 103/56; PULSE 56; RESP 16; O2SAT 96
[2025-01-09 06:34] LABS: Hemoglobin 11.6 g/dL (12.2-16.2); Nucleated Red Blood Cells % 0.3 %
[2025-01-09 06:35] LABS: Chloride 106 mmol/L (98-107); Potassium 3.6 mmol/L (3.5-5.1); Sodium 140 mmol/L (136-145)
[2025-01-09 06:36] LABS: Anion Gap 10 (5-15); Carbon Dioxide 24 mmol/L (20-31)
[2025-01-09 06:37] LABS: Hematocrit 34.9 % (36.0-46.0); Mean Corpuscular Hemoglobin 26.3 pg (28.0-32.0); Mean Corpuscular Volume 79.4 fL (80.0-100.0)
[2025-01-09 06:38] LABS: Calcium 8.7 mg/dL (8.7-10.4)
[2025-01-09 06:41] LABS: BUN/Creatinine Ratio 11.1 (10.0-20.0); Glucose 82 mg/dL (74-106)
[2025-01-09 06:42] LABS: Blood Urea Nitrogen 7 mg/dL (9-23); Magnesium 2.0 mg/dL (1.6-2.6)
[2025-01-09 08:51] VITALS: BP 126/78; PULSE 59; RESP 18; TEMP 98; O2SAT 94
[2025-01-09 13:00] VITALS: BP 136/81; PULSE 51; RESP 18; TEMP 97.6; O2SAT 95
[2025-01-09] MEDS ORDERED: CEFD300C2 PO (13:40)
--- NOTE | 2025-01-09 13:46 | DVHDS2 ---
Discharge Summary Date of Admission Jan 05, 2025 at 16:24 Date of Discharge: Jan 09, 2025 Labs/Diagnostic Data: Laboratory Results Test 01/09/25 05:08 01/06/25 05:47 01/05/25 21:15 01/05/25 08:20 White Blood Count 7.8 10^3/uL (4.4-10.8) Red Blood Count 4.40 10^6/uL (4.0-5.20) Hemoglobin 11.6 g/dL (12.2-16.2) Hematocrit 34.9 % (36.0-46.0) Mean Corpuscular Volume 79.4 fL (80.0-100.0) Mean Corpuscular Hemoglobin 26.3 pg (28.0-32.0) Mean Corpuscular Hemoglobin Concent 33.1 g/dL (32.0-36.0) Red Cell Distribution Width 16.3 % (11.8-14.3) Platelet Count 373 10^3/uL (140-450) Mean Platelet Volume 9.0 fL (6.9-10.8) Neutrophils (%) (Auto) 62.1 % (37.0-80.0) Lymphocytes (%) (Auto) 27.3 % (10.0-50.0) Monocytes (%) (Auto) 10.1 % (0.0-12.0) Eosinophils (%) (Auto) 0.2 % (0.0-7.0) Basophils (%) (Auto) 0.3 % (0.0-2.0) Neutrophils # (Auto) 4.9 10 ^3/uL (1.6-8.6) Lymphocytes # (Auto) 2.1 10 ^3/uL (0.4-5.4) Monocytes # (Auto) 0.8 10 ^3/uL (0-1.3) Eosinophils # (Auto) 0 10 ^3/uL (0-0.8) Basophils # (Auto) 0 10 ^3/uL (0-0.2) Nucleated Red Blood Cells 0.3 % Sodium Level 140 mmol/L (136-145) Potassium Level 3.6 mmol/L (3.5-5.1) Chloride Level 106 mmol/L (98-107) Carbon Dioxide Level 24 mmol/L (20-31) Anion Gap 10 (5-15) Blood Urea Nitrogen 7 mg/dL (9-23) Creatinine 0.63 mg/dL (0.550-1.02) Glomerular Filtration Rate Calc 107 mL/min (>90) BUN/Creatinine Ratio 11.1 (10.0-20.0) Serum Glucose 82 mg/dL (74-106) Calcium Level 8.7 mg/dL (8.7-10.4) Magnesium Level 2.0 mg/dL (1.6-2.6) Total Bilirubin 0.8 mg/dL (0.2-1.0) Aspartate Amino Transferase (AST) 25 U/L (13-40) Alanine Aminotransferase (ALT) 23 U/L (7-40) Alkaline Phosphatase 102 U/L (46-116) Total Protein 7.1 g/dL (5.7-8.2) Albumin 4.2 g/dL (3.2-4.8) Lactic Acid Level 1.1 mmol/L (0.4-2.0) Hemoglobin A1c 5.7 % A1C (<5.7) Uric Acid 4.5 mg/dL (3.1-7.8) Triglycerides Level 90 mg/dL (< 150) Cholesterol Level 182 mg/dL (< 200) LDL Cholesterol 101 mg/dL (< 100) HDL Cholesterol 68 mg/dL (40-59) Thyroid Stimulating Hormone (TSH) 1.29 uIU/mL (0.55-4.78) Test 01/05/25 07:52 Urine Color Light-orange (Yellow) Urine Clarity Turbid (Clear) Urine pH 5.5 (5.0-9.0) Urine Specific [place] 1.027 (1.001-1.035) Urine Protein 1+ (Negative) Urine Ketones 1+ (Negative) Urine Blood 2+ /uL (Negative) Urine Nitrite Negative (Negative) Urine Bilirubin Negative (Negative) Urine Urobilinogen Normal mg/dL (Negative) Urine Leukocyte Esterase 3+ /uL (Negative) Urine RBC 88 /hpf (0 - 4) Urine WBC Clumps Present /hpf (None Seen) Urine Microscopic WBC 486 /HPF (0-5) Urine Squamous Epithelial Cells Few /hpf (<5) Urine Bacteria Few /hpf (None Seen) Urine Mucus Few (None Seen) Urine Glucose Trace mg/dL (Normal) Other Laboratory Tests 01/09/25 05:08 Brief Hx & Hospital Course: 49-year-old female with a known history of recent UTI was treated in the ER presented to the hospital with a fevers chills dysuria and abdominal pain found to have sepsis secondary to UTI. Patient also has a bilateral recurrent kidney stones. Patient's hospital course was eventful for diarrhea, C diff has been ruled out. Patient was given IV antibiotics and Urology was consulted for bilateral nonobstructing nephrolithiasis. Dr. Mayes only saw the patient and cleared the patient to be discharged with the outpatient follow up with the her own urologist. Patient is currently tolerating diet and stable to be discharged on cefdinir as prescribed. Condition at Discharge: Stable Final Diagnosis/Problems List 49-year-old female with a known history of recent UTI was treated in the ER presented to the hospital with a fevers chills dysuria and abdominal pain found to have 1. Sepsis secondary to UTI 2. Complicated UTI 3. Recurrent kidney stones 4. Leukocytosis 5. Hypothyroidism 6. Diarrhea ruled out C diff- Discharge Disposition: Home SNF Discharge Will this Physician continue t: No Discharge Instruct/Medications Diet: Cardiac 2g Na,low cholest Activity: No Restrictions, As Tolerated Follow Up/Referral: Follow up with the PCP in one week Follow up with the your own urologist in 1-2 weeks. Medications: Cefdinir as prescribed. New Medications: Cefdinir (Cefdinir) 300 Mg Cap 1 CAP PO BID for 7 Days, #14 CAP Continued Medications: Levothyroxine Sodium (Levothyroxine Sodium) 25 Mcg Tab 1 TAB PO DAILY, #30 TAB 5 Refills Scheduled Cefdinir (Cefdinir), 1 CAP PO BID Levothyroxine Sodium (Levothyroxine Sodium), 1 TAB PO DAILY, (Reported) Discharge Statement: "Patient was advised to return to the ER or call 911 if any headaches, dizziness, shortness of breath, chest pain, abdominal pain, bleeding, fevers, or worsening of medical condition. Patient was counseled about treatment plan, medications, possible side effects, patientverbalized understanding. All questions were answered to the best of my ability. This discharge took greater then 30 minutes in planning, reviewing documentation, counseling the patient, and discussing with other team members." ASSESSMENT ASSESSMENT Assessment 49-year-old female with a known history of recent UTI was treated in the ER presented to the hospital with a fevers chills dysuria and abdominal pain found to have 1. Sepsis secondary to UTI 2. Complicated UTI 3. Recurrent kidney stones 4. Leukocytosis 5. Hypothyroidism 6. Diarrhea ruled out C diff- Date of Service: Jan 09, 2025 Billing Provider: LEWIS REINA MD Common Visit Codes: [id number]/[id number] DISCH DAY >30min LEWIS REINA MD Jan 09, 2025 13:46
[2025-01-09 17:09] VITALS: BP 115/73; PULSE 61; RESP 20; TEMP 97.6; O2SAT 94
[2025-01-09 21:00] VITALS: BP 133/83; PULSE 110; RESP 16; TEMP 98.8; O2SAT 90
[2025-01-10 01:00] VITALS: BP 120/77; PULSE 112; RESP 18; TEMP 98.6; O2SAT 91
== END 2025-01-09 18:10 | disposition home or self-care (01) | DRG 720 ==
LOC: ER 07:12 → OVERFLOW 16:24 → WEST WING 01-06 21:43
PROVIDERS: ADMIT Hospitalist; ATTEND Hospitalist
DX: A41.9 Sepsis, unspecified organism (principal); K76.0 Fatty (change of) liver, not elsewhere classified; R16.0 Hepatomegaly, not elsewhere classified; E03.9 Hypothyroidism, unspecified; N10 Acute pyelonephritis; N20.0 Calculus of kidney; F41.9 Anxiety disorder, unspecified; R19.7 Diarrhea, unspecified; Z87.442 Personal history of urinary calculi; Z88.2 Allergy status to sulfonamides; Z88.1 Allergy status to other antibiotic agents; Z90.49 Acquired absence of other specified parts of digestive tract; J98.11 Atelectasis
CPT/HCPCS: 36415; 74176; 80048; 80053; 80061; 81001; 83036; 83605; 83735; 84443; 84550; 85025; 87040; 87086; 87493; 96365; 96375; G0378; J0696; J1885; J2405; J2470; Q0162

== ENCOUNTER 2025-03-14 10:57 | Emergency (ER) | payer MEDICAID ==
[~2025-03-14] VITALS: Ht 152.4 cm; Wt 87.9 kg
[~2025-03-14 10:57] MED LIST changes: +CEFD300C2 PO; +LEVO25TA6 PO; -NAPR-957 PO; -OMEP20TA PO; -VARD20TA PO
[2025-03-14] MEDS ORDERED: ONDANSETRON HCL 4 MG/2 ML VIAL IV ONE (11:15)
--- NOTE | 2025-03-14 11:15 | ED.PDOC ---
History of Present Illness HPI Comments 50-year-old female presents to the ER with prior medical history of kidney stones, thyroid, UTI: Surgical history of cholecystectomy, benign tumor removal of the left breast, kidney stone removal in the chief complaint of flank pain. Patient reports on having pain during urination associated with right flank pain for the past four days. Patient notes that she has been having similar symptoms, when she was hospitalized for sepsis and UTI in December. Denies any other symptoms at this time. Denies chills, fever, N/V/D, SOB, CP. No other associated symptoms, modifiers, recent injuries or sick contacts present at this time. Chief Complaint: Flank Pain Time Seen by MD: 11:10 Primary Care Provider: NONE Reviewed Notes: Nurses Notes, Medications, Allergies Allergies: Coded Allergies: Amoxicillin (Verified Allergy, Unknown, 01/08/25) Ciprofloxacin (Verified Allergy, Unknown, 12/26/21) Clavulanic Acid (Verified Allergy, Unknown, 01/08/25) Levofloxacin (Verified Allergy, Unknown, 12/26/21) Nitrofurantoin (Verified Allergy, Unknown, 12/26/21) Uncoded Allergies: SULFA (Allergy, Unknown, 12/26/21) Home Meds Active Scripts Cephalexin (KEFLEX CAPSULE) 250 Mg Cp, 500 MG PO QID for 10 Days, #40 BOTTLE Prov:LUIS PRICE MD 03/14/25 Cefdinir (Cefdinir) 300 Mg Cap, 1 CAP PO BID for 7 Days, #14 CAP Prov:LEWIS REINA MD 01/09/25 Reported Medications Levothyroxine Sodium (Levothyroxine Sodium) 25 Mcg Tab, 1 TAB PO DAILY, #30 TAB 5 Refills 01/06/25 Information Source: Patient Mode of Arrival: Ambulatory Severity: Moderate Timing: Days Duration: Since onset, Days Prehospital treatment: None Past Medical History PAST MEDICAL HISTORY: Kidney Stones, Thyroid, UTI'S Surgical History: Cholecystectomy Surgical History (Other): Surgery to a benign tumor of the left breast, kidney 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 Family History Family History: Reviewed,noncontributory to illness, Unknown Social History Smoker: Non-Smoker Alcohol: Denies ETOH Use Drugs: Denies Drug Use Lives In: Home Constitutional: denies: chills, diaphoresis, fatigue, fever, malaise, sweats, weakness, others EENTM: denies: blurred vision, double vision, ear bleeding, ear discharge, ear drainage, ear pain, ear ringing, eye pain, eye redness, hearing loss, mouth pain, mouth swelling, nasal discharge, nose bleeding, nose congestion, nose pain, photophobia, tearing, throat pain, throat swelling, voice changes, others Respiratory: denies: cough, hemoptysis, orthopnea, SOB at rest, shortness of breath, SOB with excertion, stridor, wheezing, others Cardiovascular: denies: chest pain, dizzy spells, diaphoresis, Dyspnea on exertion, edema, irregular heart beat, left arm pain, lightheadedness, p alpitations, PND, syncope, others Gastrointestinal: denies: abdomen distended, abdominal pain, blood streaked bowels, constipated, diarrhea, dysphagia, difficulty swallowing, hematemesis, melena, nausea, poor appetite, poor fluid intake, rectal bleeding, rectal pain, vomiting, others Genitourinary: reports: dysuria, flank pain; denies: abnormal vagina bleeding, burning, dyspareunia, frequency, hematuria, incontinence, pain, , vagina discharge, urgency, others Neurological: denies: dizziness, fainting, headache, left sided numbness, left sided weakness, numbness, paresthesia, pre-existing deficit, right sided numbness, right sided weakness, seizure, speech problems, tingling, tremors, weakness, others Musculoskeletal: denies: back pain, gout, joint pain, joint swelling, muscle pain, muscle stiffness, neck pain, others Integumetry: denies: bruises, change in color, change in hair/nails, dryness, laceration, lesions, lumps, rash, wounds, others Allergic/Immunocompromised: denies: Difficulty Healing, Frequent Infections, Hives, Itching, others Hematologic/Lymphatic: denies: anemia, blood clots, easy bleeding, easy bruising, swollen glands, others Endocrine: denies: excessive hunger, excessive sweating, excessive thirst, excessive urination, flushing, intolerance to cold, intolerance to heat, u nexplained weight gain, unexplained weight loss, others Psychiatric: denies: anxiety, bipolar disorder, depression, hopeless, panic disorder, schizophrenia, sleepless, suicidal, others All Other Systems: Reviewed and Negative Physical Exam General Appearance: Moderate Distress, Normal HEENT: Normal ENT Inspection, Pharynx Normal, TMs Normal Neck: Full Range of Motion, Non-Tender, Normal, Normal Inspection Respiratory: Chest Non-Tender, Lungs Clear, No Accessory Muscle Use, No Respiratory Distress, Normal Breath Sounds Cardiovascular: No Edema, No JVD, No Murmur, No Gallop, Normal Peripheral Puls es, Regular Rate/Rhythm Breast Exam: Deferred Gastrointestinal: No Organomegaly, Non Tender, No Pulsatile Mass, Normal Bowel Sounds, Soft Genitalia: Deferred Pelvic: Deferred Rectal: Deferred Extremities: No calf tenderness, Normal capillary refill, Normal inspection, Normal range of motion, Non-tender, No pedal edema Musculoskeletal : Apperance: Normal Neurologic: Alert, labor relations analyst II-XII nml as Tested, No Motor Deficits, Normal Affect, Normal Mood, No Sensory Deficits Cerebellar Function: Normal Reflexes: Normal Skin: Dry, Normal Color, Warm Peripheral Pulses: 3+ Radial (R), 3+ Radial (L) Lymphatic: No Adenopathy Was a procedure done? Was a procedure done?: No Differential Dx Considerations may include: Urinary tract infection X-Ray, Labs, Meds, VS Vital Signs Date Time Temp Pulse Resp B/P (MAP) Pulse Ox O2 Delivery O2 Flow Rate FiO2 03/14/25 10:59 97.9 80 15 156/79 99 97.9 Lab Test 03/14/25 12:13 03/14/25 11:32 Range/Units Urine Color Colorless Yellow Urine Clarity Clear Clear Urine pH 6.0 5.0-9.0 Urine Specific [place] 1.014 1.001-1.035 Urine Protein Negative Negative Urine Ketones Negative Negative Urine Blood Negative Negative /uL Urine Nitrite Negative Negative Urine Bilirubin Negative Negative Urine Urobilinogen Normal Negative mg/dL Urine Leukocyte Esterase 3+ Negative /uL Urine RBC 1 0 - 4 /hpf Urine Microscopic WBC 35 H 0-5 /HPF Urine Squamous Epithelial Cells Few <5 /hpf Urine Bacteria None seen None Seen /hpf Urine Glucose Normal Normal mg/dL White Blood Count 7.2 4.4-10.8 10^3/uL Red Blood Count 5.15 4.0-5.20 10^6/uL Hemoglobin 13.0 12.2-16.2 g/dL Hematocrit 40.6 36.0-46.0 % Mean Corpuscular Volume 79.0 L 80.0-100.0 fL Mean Corpuscular Hemoglobin 25.2 L 28.0-32.0 pg Mean Corpuscular Hemoglobin Concent 32.0 32.0-36.0 g/dL Red Cell Distribution Width 17.6 H 11.8-14.3 % Platelet Count 391 140-450 10^3/uL Mean Platelet Volume 8.9 6.9-10.8 fL Neutrophils (%) (Auto) 66.5 37.0-80.0 % Lymphocytes (%) (Auto) 25.9 10.0-50.0 % Monocytes (%) (Auto) 7.2 0.0-12.0 % Eosinophils (%) (Auto) 0.0 0.0-7.0 % Basophils (%) (Auto) 0.4 0.0-2.0 % Neutrophils # (Auto) 4.8 1.6-8.6 10 ^3/uL Lymphocytes # (Auto) 1.9 0.4-5.4 10 ^3/uL Monocytes # (Auto) 0.5 0-1.3 10 ^3/uL Eosinophils # (Auto) 0 0-0.8 10 ^3/uL Basophils # (Auto) 0 0-0.2 10 ^3/uL Nucleated Red Blood Cells 0.1 % Sodium Level 140 136-145 mmol/L Potassium Level 3.3 L 3.5-5.1 mmol/L Chloride Level 104 98-107 mmol/L Carbon Dioxide Level 26 20-31 mmol/L Anion Gap 10 5-15 Blood Urea Nitrogen 14 9-23 mg/dL Creatinine 0.78 0.550-1.02 mg/dL Glomerular Filtration Rate Calc 91 >90 mL/min BUN/Creatinine Ratio 17.9 10.0-20.0 Serum Glucose 120 H 74-106 mg/dL Calcium Level 9.4 8.7-10.4 mg/dL Current Medications Medications (Trade) Dose Ordered Sig/Nelda Route Start Time Stop Time Status Last Admin Sodium Chloride 1,000 ml @ 1,000 mls/hr Q1H ONCE IVB 03/14/25 11:15 03/14/25 12:14 DC 03/14/25 12:34 Ketorolac Tromethamine (Toradol Injection) 30 mg ONCE ONCE IV 03/14/25 11:15 03/14/25 11:16 DC 03/14/25 12:33 Ondansetron HCl (Zofran Po) 4 mg ONCE ONCE PO 03/14/25 12:30 03/14/25 12:31 DC 03/14/25 12:33 Potassium Bicarbonate (Klor-Con/Ef) 25 meq ONCE ONCE PO 03/14/25 15:45 03/14/25 15:46 DC 03/14/25 16:08 Patient alert. Came in because of flank pain. Abdomen is soft nontender. Vitals stable. Answering questions. No sign of any distress. No acute process. She was given fluids pain She was given pain medication. She was given Zofran. Potassium slightly low. She was given potassium. No acute process. Was given prescription of Keflex antibiotic. Explained to the patient. Was told to follow up with her primary care physician. Was told to come back if there is any problem. Time of 1ST Reevaluation: 11:40 Reevaluation 1ST: Improved Patient Education/Counseling: Diagnosis, Treatment, Prognosis Family Education/Counseling: No Family Present SEPSIS Sepsis Screen Date sepsis recognized/suspect: Mar 14, 2025 Time Sepsis recognized/suspect: 1100 Recent Procedure: No On Antibiotic Therapy: No Respiratory Rate >20: No Heart Rate >90: No Temp<36 C (96.8 F) or >38.3 C: No SBP <90 or MAP <65 mmHG: No New Acute Mental Status Change: No Is the patient on CPAP, BIPAP,: No Vital Signs Date Time Temp Pulse Resp B/P (MAP) Pulse Ox O2 Delivery O2 Flow Rate FiO2 03/14/25 10:59 97.9 80 15 156/79 99 97.9 Laboratory Tests Test 03/14/25 11:32 White Blood Count 7.2 10^3/uL (4.4-10.8) Medications Medications Dose Ordered Sig/Nelda Route Start Time Stop Time Status Last Admin Dose Admin Ketorolac Tromethamine 30 mg ONCE ONCE IV 03/14/25 11:15 03/14/25 11:16 DC 03/14/25 12:33 Ondansetron HCl 4 mg ONCE ONCE PO 03/14/25 12:30 03/14/25 12:31 DC 03/14/25 12:33 Potassium Bicarbonate 25 meq ONCE ONCE PO 03/14/25 15:45 03/14/25 15:46 DC 03/14/25 16:08 Sodium Chloride 1,000 ml @ 1,000 mls/hr Q1H ONCE IVB 03/14/25 11:15 03/14/25 12:14 DC 03/14/25 12:34 Departure 1 Departure Time of Disposition: 15:42 Impression: Primary Impression: Hypokalemia Additional Impression: UTI (urinary tract infection) Qualified Codes: N30.00 - Acute cystitis without hematuria Disposition: 01 HOME / SELF CARE / HOMELESS Condition: Good e-Prescriptions Cefdinir (Cefdinir) 300 Mg Cap 1 CAP PO BID for 10 Days, #20 CAP Prov: LUIS PRICE MD 03/14/25 Discharged With: Self Critical Care Note Critical Care Time?: No Stability Stability form required: No Heart Score Heart Score: Heart Score Response (Comments) Value History N/A 0 EKG N/A 0 Age N/A 0 Risk Factors N/A 0 Troponin N/A 0 Total 0 I personally scribed for LUIS PRICE MD ([email or web address]) on 03/14/25 at 11:15. Electronically submitted by Alex Soto ([email or web address]). LUIS PRICE MD Mar 14, 2025 11:15
[2025-03-14 12:05] LABS: Hematocrit 40.6 % (36.0-46.0); Hemoglobin 13.0 g/dL (12.2-16.2); Mean Corpuscular Hemoglobin 25.2 pg (28.0-32.0); Mean Corpuscular Volume 79.0 fL (80.0-100.0); Nucleated Red Blood Cells % 0.1 %
[2025-03-14 12:17] LABS: Chloride 104 mmol/L (98-107); Sodium 140 mmol/L (136-145)
[2025-03-14 12:19] LABS: Anion Gap 10 (5-15); Calcium 9.4 mg/dL (8.7-10.4); Carbon Dioxide 26 mmol/L (20-31)
[2025-03-14 12:20] LABS: Potassium 3.3 mmol/L (3.5-5.1)
[2025-03-14 12:24] LABS: BUN/Creatinine Ratio 17.9 (10.0-20.0); Blood Urea Nitrogen 14 mg/dL (9-23)
[2025-03-14 12:31] LABS: Glucose 120 mg/dL (74-106)
[2025-03-14 12:33] LABS: Urine Protein, UAD Negative (Negative)
[2025-03-14] MEDS: KETOROLAC TROMETH 30 MG/ML 1ML VIAL IV ONE (12:33)
[2025-03-14] MEDS: ONDANSETRON ODT 4 MG TAB PO ONE (12:33)
[2025-03-14] MEDS: SODIUM CHLORIDE 0.9% 1,000 ML IVB ONE (12:34)
[2025-03-14] MEDS ORDERED: CEPH250C PO (15:43)
[2025-03-14] MEDS: POTASSIUM EFFERVESENT TAB 25 MEQ PO ONE (16:08)
[2025-03-14] MEDS ORDERED: CEFD300C2 PO (16:24)
[2025-03-14 16:25] VITALS: BP 126/62; PULSE 76; RESP 18; TEMP 97.6; O2SAT 98
== END 2025-03-14 16:49 | disposition home or self-care (01) ==
LOC: ER 10:57
DX: N39.0 Urinary tract infection, site not specified (principal); E87.6 Hypokalemia; Z90.49 Acquired absence of other specified parts of digestive tract; Z88.2 Allergy status to sulfonamides; Z88.1 Allergy status to other antibiotic agents; Z88.0 Allergy status to penicillin
CPT/HCPCS: 36415; 80048; 81001; 85025; 96361; 96374; 99283; J1885; J7030; Q0162

== ENCOUNTER 2025-03-15 10:30 | Emergency (ER) | payer MEDICAID ==
[~2025-03-15] VITALS: Ht 160 cm; Wt 86.3 kg
--- NOTE | 2025-03-15 11:08 | ED.PDOC ---
History of Present Illness HPI Comments 50-year-old female came to the ER stating that she has sore throat after taking Keflex. She was supposed to get Keflex instead she was given cefdinir but somehow the pharmacy had give her Keflex and she had taking Keflex even though she knows he maybe allergic to the drug. On examination she is able to complete sentences no shortness a breath no chest pain no leg swelling no sign of any distress. Denies any other symptoms. Chief Complaint: Allergic Reaction Time Seen by MD: 10:50 Primary Care Provider: NONE Reviewed Notes: Nurses Notes, Medications, Allergies Allergies: Coded Allergies: Amoxicillin (Verified Allergy, Unknown, 01/08/25) Cephalexin (Verified Allergy, Unknown, 03/15/25) Ciprofloxacin (Verified Allergy, Unknown, 12/26/21) Clavulanic Acid (Verified Allergy, Unknown, 01/08/25) Levofloxacin (Verified Allergy, Unknown, 12/26/21) Nitrofurantoin (Verified Allergy, Unknown, 12/26/21) Uncoded Allergies: SULFA (Allergy, Unknown, 12/26/21) Home Meds Active Scripts Cefdinir (Cefdinir) 300 Mg Cap, 1 CAP PO BID for 10 Days, #20 CAP Prov:LUIS PRICE MD 03/14/25 Cefdinir (Cefdinir) 300 Mg Cap, 1 CAP PO BID for 7 Days, #14 CAP Prov:LEWIS REINA MD 01/09/25 Reported Medications Levothyroxine Sodium (Levothyroxine Sodium) 25 Mcg Tab, 1 TAB PO DAILY, #30 TAB 5 Refills 01/06/25 Information Source: Patient Mode of Arrival: Ambulatory Severity: Mild Timing: Days Duration: Since onset Past Medical History PAST MEDICAL HISTORY: Kidney Stones, Thyroid, UTI'S Surgical History: Cholecystectomy HEALTH ADVOCATE History: No Pertinent HEALTH ADVOCATE History Family History Family History: Reviewed,noncontributory to illness, Unknown Social History Smoker: Non-Smoker Alcohol: Denies ETOH Use Drugs: Denies Drug Use Lives In: Home Constitutional: denies: chills, diaphoresis, fatigue, fever, malaise, sweats, weakness, others EENTM: denies: blurred vision, double vision, ear bleeding, ear discharge, ear drainage, ear pain, ear ringing, eye pain, eye redness, hearing loss, mouth pain, mouth swelling, nasal discharge, nose bleeding, nose congestion, nose pain, photophobia, tearing, throat pain, throat swelling, voice changes, others Respiratory: denies: cough, hemoptysis, orthopnea, SOB at rest, shortness of breath, SOB with excertion, stridor, wheezing, others Cardiovascular: denies: chest pain, dizzy spells, diaphoresis, Dyspnea on exertion, edema, irregular heart beat, left arm pain, lightheadedness, palpitations, PND, syncope, others Gastrointestinal: denies: abdomen distended, abdominal pain, blood streaked bowels, constipated, diarrhea, dysphagia, difficulty swallowing, hematemesis, melena, nausea, poor appetite, poor fluid intake, rectal bleeding, rectal pain, vomiting, others Genitourinary: denies: abnormal vagina bleeding, burning, dyspareunia, dysuria, flank pain, frequency, hematuria, incontinence, pain, , vagina discharge, urgency, others Neurological: denies: dizziness, fainting, headache, left sided numbness, left sided weakness, numbness, paresthesia, pre-existing deficit, right sided numbness, right sided weakness, seizure, speech problems, tingling, tremors, weakness, others Musculoskeletal: denies: back pain, gout, joint pain, joint swelling, muscle pain, muscle stiffness, neck pain, others Integumetry: denies: bruises, change in color, change in hair/nails, dryness, laceration, lesions, lumps, rash, wounds, others Allergic/Immunocompromised: denies: Difficulty Healing, Frequent Infections, Hives, Itching, others Hematologic/Lymphatic: denies: anemia, blood clots, easy bleeding, easy bruising, swollen glands, others Endocrine: denies: excessive hunger, excessive sweating, excessive thirst, excessive urination, flushing, intolerance to cold, intolerance to heat, unexplained weight gain, unexplained weight loss, others Psychiatric: denies: anxiety, bipolar disorder, depression, hopeless, panic disorder, schizophrenia, sleepless, suicidal, others Physical Exam General Appearance: Moderate Distress HEENT: Normal ENT Inspection, Pharynx Normal, TMs Normal Neck: Full Range of Motion, Non-Tender, Normal, Normal Inspection Respiratory: Chest Non-Tender, Lungs Clear, No Accessory Muscle Use, No Respiratory Distress, Normal Breath Sounds Cardiovascular: No Edema, No JVD, No Murmur, No Gallop, Normal Peripheral Pulses, Regular Rate/Rhythm Breast Exam: Deferred Gastrointestinal: No Organomegaly, Non Tender, No Pulsatile Mass, Normal Bowel Sounds, Soft Genitalia: Deferred Pelvic: Deferred Rectal: Deferred Extremities: No calf tenderness, Normal capillary refill, Normal inspection, Normal range of motion, Non-tender, No pedal edema Musculoskeletal : Apperance: Normal Neurologic: Alert, motor installer II-XII nml as Tested, No Motor Deficits, Normal Affect, Normal Mood, No Sensory Deficits Cerebellar Function: Normal Reflexes: Normal Skin: Dry, Normal Color, Warm Peripheral Pulses: 3+ Radial (R), 3+ Radial (L) Lymphatic: No Adenopathy Was a procedure done? Was a procedure done?: No Differential Dx Considerations may include: Anxiety X-Ray, Labs, Meds, VS Vital Signs Date Time Temp Pulse Resp B/P (MAP) Pulse Ox O2 Delivery O2 Flow Rate FiO2 03/15/25 10:31 99.0 87 20 181/87 99 99.0 Patient alert. Complaining of tongue swelling. On examination there is no swelling of the tongue. She is anxious. Reviewed her previous visit. She was given cefdinir. Keflex was canceled. Was given steroid even though she may not benefit from it. Explained to the patient. Was told to follow up with her primary care physician. Was told to come back if there is any problem. Time of 1ST Reevaluation: 11:06 Reevaluation 1ST: Improved Patient Education/Counseling: Diagnosis, Treatment, Prognosis, Need For Follow Up Family Education/Counseling: No Family Present SEPSIS Sepsis Screen Date sepsis recognized/suspect: Mar 15, 2025 Time Sepsis recognized/suspect: 1033 Recent Procedure: No On Antibiotic Therapy: No Respiratory Rate >20: No Heart Rate >90: No Temp<36 C (96.8 F) or >38.3 C: No SBP <90 or MAP <65 mmHG: No New Acute Mental Status Change: No Is the patient on CPAP, BIPAP,: No Vital Signs Date Time Temp Pulse Resp B/P (MAP) Pulse Ox O2 Delivery O2 Flow Rate FiO2 03/15/25 10:31 99.0 87 20 181/87 99 99.0 Departure 1 Departure Time of Disposition: 11:07 Impression: Primary Impression: Anxiety Disposition: 01 HOME / SELF CARE / HOMELESS Condition: Good e-Prescriptions Cefdinir (Cefdinir) 300 Mg Cap 1 CAP PO BID for 7 Days, #14 CAP Prov: LUIS PRICE MD 03/15/25 Discharged With: Self Critical Care Note Critical Care Time?: No Stability Stability form required: No Heart Score Heart Score: Heart Score Response (Comments) Value History N/A 0 EKG N/A 0 Age N/A 0 Risk Factors N/A 0 Troponin N/A 0 Total 0 LUIS PRICE MD Mar 15, 2025 11:08
[2025-03-15] MEDS: methylPREDNISolone SOD SUCC 125 MG/2 ML VL IM ONE (11:12)
[2025-03-15 11:13] VITALS: BP 147/81; PULSE 72; TEMP 97.9
[2025-03-15 11:14] VITALS: RESP 17
[2025-03-15 11:15] VITALS: O2SAT 97
== END 2025-03-15 11:42 | disposition home or self-care (01) ==
LOC: ER 10:30
DX: F41.9 Anxiety disorder, unspecified (principal); Z79.899 Other long term (current) drug therapy; Z90.49 Acquired absence of other specified parts of digestive tract; Z88.1 Allergy status to other antibiotic agents; Z88.2 Allergy status to sulfonamides; Z88.0 Allergy status to penicillin; Z87.442 Personal history of urinary calculi; Z87.440 Personal history of urinary (tract) infections; Z79.890 Hormone replacement therapy
CPT/HCPCS: 96372; 99283; J2919